=== PATIENT | female | born 1945 | race Caucasian/White ===

== ENCOUNTER 2024-03-17 18:58 | Observation (INO) ==
--- NOTE | 2024-03-17 19:22 | Emergency Department Note ---
Impression & Plan Acute respiratory distress, WILKINS (dyspnea on exertion), Acute bronchospasm, Tachycardia, COPD (chronic obstructive pulmonary disease), Acute hyponatremia ED Provider Note NAME: RENATA FREEMAN AGE: 78 SEX: F : 1945 ARRIVES VIA: Ambulance INFORMANT: Patient, EMS ED PROVIDER(S): Jon Cohen DO CHIEF COMPLAINT: Shortness of breath HPI: The patient is a 78-year-old female who presented to the emergency department for shortness of breath. The patient has been noticing symptoms over the course of the last 3 weeks which became much worse over the last 48 hours. The patient called 911 and arrived via ambulance. She was found to be very short of breath and was treated with 3 DuoNeb treatments prior to arrival as well as IV Solu-Medrol. The patient continues to have significant symptoms. She denies having any hemoptysis but does note a productive cough or a frothy sputum. She states her family member had similar symptoms a few weeks ago but she got better. The patient denies having any leg swelling or leg pain. ROS: See above HPI for pertinent positives & negatives. A total of 10 systems reviewed and were otherwise negative. PAST MEDICAL HISTORY: See Below PAST SURGICAL HISTORY: See Below FAMILY HISTORY: See Below SOCIAL HISTORY: See Below HOME MEDICATIONS: See Below ALLERGIES: See Below VITALS: See Below PHYSICAL EXAMINATION: GENERAL: The patient is awake and alert. The patient is very anxious appearing. EYES: The conjunctivae are clear. The pupils are round and reactive. EARS, NOSE, MOUTH AND THROAT: The nose is without any evidence of any deformity. NECK: The neck is nontender and supple. RESPIRATORY: Diminished breath sounds are noted throughout. There was diminished wheezes noted in the upper lung cruz. There is significant tachypnea and conversational dyspnea. CARDIOVASCULAR: Regular rate and rhythm noted there no murmurs rubs or gallops normal S1 normal S2. GASTROINTESTINAL: The abdomen is soft. Abdomen is nontender. MUSCULOSKELETAL/EXTREMITIES: There is no evidence of gross deformity full range of motion is noted in the hips and shoulders. SKIN: There is no obvious evidence of any rash. There are no petechiae, pallor or cyanosis noted. NEUROLOGIC: Patient is awake alert and oriented x3 MEDICAL DECISION MAKING: The patient is a 78-year-old female who presented to the emergency department by ambulance for an evaluation of shortness of breath. The patient already received 3 DuoNeb treatments as well as IV steroids prior to arrival. The patient was tachycardic and having episodes of what appeared to be atrial fibrillation on the cardiac exercise physiologist. I did observe the patient for a period of time until her heart rate improved. She was treated with another DuoNeb because of ongoing bronchospasm as well as IV Cardizem. The patient was treated with IV antibiotics as well. I discussed the patient's laboratory and radiographic studies with her. Given her findings I did discuss her condition with the on- call [facility]. They have agreed to evaluate the patient in the emergency department for further management and disposition. Triage Nursing notes reviewed. Prior medical records reviewed Vital Signs: reviewed and remarkable for tachycardia and tachypnea. Differential diagnosis: Reactive airway disease, pneumonia, pneumothorax, COPD, CHF, infections, cardiac ischemia, pulmonary embolism, musculoskeletal, gastrointestinal, as well as other pathologies. ER treatment provided: See below Diagnostics interpreted by me: ECG: EKG was obtained in the emergency department. My interpretation is sinus rhythm at 80 bpm. There were frequent PACs noted. There is no acute ST segment abnormalities noted. No previous tracing was available. Cardiac Monitoring: An order was placed for continuous cardiac monitoring. The monitor shows a rate of 105 bpm with sinus tachycardia. Laboratory studies: As stated above and show below. Imaging studies: See below. Radiographic imaging was reviewed by myself Consultation(s): I discussed this case with Dr. Alvarado who is on-call for the [facility] group. ED COURSE: Procedures: none Critical Care: I have personally spent greater than 45 minutes of critical care time in the direct management of this patient. This includes bedside care, interpretation of diagnostic studies, and testing, discussion with consultants, patient, and family members, and other required patient management activities. This 45 minutes is in excess of all separately billable procedures. Past Med/Surg History Problem List (Updated 03/18/24 @ 01:34 by Jon Cohen DO) Acute hyponatremia (Acute) Tachycardia (Acute) Acute bronchospasm (Acute) WILKINS (dyspnea on exertion) (Acute) Acute respiratory distress (Acute) Eczematoid otitis externa of both ears COPD (chronic obstructive pulmonary disease) (Chronic) GERD (gastroesophageal reflux disease) (Chronic) Hypertension (Chronic) Hypothyroidism (Chronic) Medical History Thyroid cancer Surgical History Hx of thyroidectomy History of cholecystectomy Hx of tonsillectomy Family History Brother Diabetes Sister Anxiety Mother Asthma Denies family history of Ovarian cancer Prostate cancer Heart disease Breast cancer Colorectal cancer Social History Smoking Status: Former smoker Age Started Using Tobacco: 18; packs per day: 0.5; Second Hand Exposure: No; Do You Dip or Chew Tobacco: No; Hx Alcohol Use: Yes Alcohol type: wine Hx Substance Use: No Preferred Language: French marital status: / Current Living Situation: Alone current occupational status: retired Feels Safe at Home: Yes Dental Care, Regularly: Yes Physical Activity Frequency: 5-6 Times per Week Allergies Allergies Allergy/AdvReac Type Severity Reaction Status Date / Time No Known Allergies Allergy Verified 03/17/24 22:17 Home Meds Home Medications Medication Instructions Recorded Confirmed hydrochlorothiazide 25 mg tablet 25 mg PO DAILY 10/19/19 03/17/24 levothyroxine 175 mcg tablet 175 mcg PO DAILY 10/19/19 03/17/24 melatonin 10 mg capsule 10 mg PO 10/19/19 03/17/24 metoprolol succinate 50 mg capsule 50 mg PO DAILY 10/19/19 03/17/24 sprinkle, ext. release 24 hr esomeprazole magnesium 20 mg 20 mg PO DAILY 01/05/24 03/17/24 capsule,delayed release (Nexium) fluticasone fur. 100 mcg-umeclid 1 inh inhalation DAILY 01/05/24 03/17/24 62.5 mcg-vilant 25 mcg inhalat.powder (Trelegy Ellipta) ibuprofen 200 mg capsule 400 mg PO AMHS 01/05/24 03/17/24 albuterol sulfate 90 mcg/actuation 2 puff inhalation DIRECTED PRN 03/17/24 03/17/24 aerosol inhaler Shortness Of Breath Or Wheezing alendronate 70 mg tablet 70 mg PO .QWEEK 03/17/24 03/17/24 diphenhydramine HCl 25 mg capsule 25 mg PO HS 03/17/24 03/17/24 (Benadryl) fluticasone propionate 50 1 spray intranasal QPM 03/17/24 03/17/24 mcg/actuation nasal spray,suspension Results & Data (ED) Vital Signs Vital Signs - 24 hr 03/17/24 19:02 03/17/24 19:22 03/17/24 19:52 Temperature 37.4 C Temperature Source Oral Pulse Rate 88 102 H 130 H Pulse Rate from SpO2 Sensor 99 H 78 Pulse Rhythm Regular Pulse Strength Normal Respiratory Rate 28 H 34 H 30 H Respiratory Effort / Characteristics Non-Labored Respiratory Depth Normal Respiratory Pattern Regular Blood Pressure 229/136 H 104/80 179/150 H Blood Pressure Mean 167 88 159 Blood Pressure Position Sitting Pulse Oximetry 93 94 90 Oxygen Delivery Method Room Air Room Air Room Air Oxygen Flow Rate Sepsis Recent Fever Within 48 Hours No Sepsis New/Unexplained Change in Mental Status N/A Sepsis Action Taken by Nursing No Action Required 03/17/24 19:58 03/17/24 20:16 03/17/24 20:29 Temperature Temperature Source Pulse Rate 124 H 117 H Pulse Rate from SpO2 Sensor 121 H Pulse Rhythm Pulse Strength Respiratory Rate 22 Respiratory Effort / Characteristics Spontaneous Respiratory Depth Normal Respiratory Pattern Regular Blood Pressure 133/79 Blood Pressure Mean 97 Blood Pressure Position Pulse Oximetry 93 Oxygen Delivery Method Room Air Room Air Oxygen Flow Rate Sepsis Recent Fever Within 48 Hours Sepsis New/Unexplained Change in Mental Status Sepsis Action Taken by Nursing 03/17/24 20:30 03/17/24 20:45 03/17/24 20:46 Temperature Temperature Source Pulse Rate 131 H 121 H 119 H Pulse Rate from SpO2 Sensor 114 H 136 H Pulse Rhythm Pulse Strength Respiratory Rate 28 H 20 Respiratory Effort / Characteristics Respiratory Depth Respiratory Pattern Blood Pressure 123/88 139/90 Blood Pressure Mean 99 106 Blood Pressure Position Pulse Oximetry 90 92 Oxygen Delivery Method Room Air Room Air Oxygen Flow Rate Sepsis Recent Fever Within 48 Hours Sepsis New/Unexplained Change in Mental Status Sepsis Action Taken by Nursing 03/17/24 21:00 03/17/24 21:16 03/17/24 21:30 Temperature Temperature Source Pulse Rate 133 H 127 H Pulse Rate from SpO2 Sensor 119 H 111 H 91 H Pulse Rhythm Pulse Strength Respiratory Rate 20 26 H 24 Respiratory Effort / Characteristics Respiratory Depth Respiratory Pattern Blood Pressure 154/92 H 120/86 129/85 Blood Pressure Mean 112 97 99 Blood Pressure Position Pulse Oximetry 91 91 92 Oxygen Delivery Method Room Air Room Air Room Air Oxygen Flow Rate Sepsis Recent Fever Within 48 Hours Sepsis New/Unexplained Change in Mental Status Sepsis Action Taken by Nursing 03/17/24 22:00 03/17/24 22:38 Temperature Temperature Source Pulse Rate 105 H Pulse Rate from SpO2 Sensor 100 H Pulse Rhythm Pulse Strength Respiratory Rate 34 H Respiratory Effort / Characteristics Respiratory Depth Respiratory Pattern Blood Pressure 139/100 Blood Pressure Mean 113 Blood Pressure Position Pulse Oximetry 92 Oxygen Delivery Method Room Air Room Air Oxygen Flow Rate 0 Sepsis Recent Fever Within 48 Hours Sepsis New/Unexplained Change in Mental Status Sepsis Action Taken by [facility] Medications Current Medication List: was personally reviewed by me Laboratory Data Attestation: I reviewed the patient's lab results. 03/17/24 19:28 03/18/24 00:22 Lab Results 03/17/24 03/17/24 03/17/24 Range/Units 19:28 19:53 20:40 WBC 13.46 H (4.8-10.8) K/ul RBC 4.51 (4.20-5.40) M/uL Hgb 14.2 (12.0-16.0) g/dl Hct 41.2 (37.0-47.0) % MCV 91.4 (80.0-100.0) fL MCH 31.5 (25.0-34.0) pg MCHC 34.5 (32.0-36.0) g/dL RDW Std Deviation 44.3 (36.4-46.3) fL RDW Coeff of Yuli 13.2 (11.5-14.5) % Plt Count 339 (130-400) K/uL MPV 9.7 (9.4-12.4) fL Immature Gran % (Auto) 0.9 % Neut % (Auto) 84.9 % Lymph % (Auto) 7.6 % [place] % (Auto) 5.4 % Eos % (Auto) 0.9 % Baso % (Auto) 0.3 % Neut # (Auto) 11.43 H (1.40-6.50) K/uL Lymph # (Auto) 1.02 L (1.20-3.40) K/uL [place] # (Auto) 0.73 H (0.11-0.59) K/uL Eos # (Auto) 0.12 (0.00-0.50) K/uL Baso # (Auto) 0.04 (0.00-0.20) K/uL Immature Gran # (Auto) 0.12 (0.01-0.20) K/uL PT 10.6 (9.0-12.0) Seconds INR 1.0 (0.9-1.1) APTT 27 (21-31) Seconds PTT Ratio 1.0 VBG pH 7.42 H (7.36-7.41) VBG pCO2 52 H (38-50) mmHg VBG pO2 27 mmHg VBG HCO3 34 mmol/L VBG O2 Saturation < 60.0 % VBG Base Excess 7.6 mEq/L Sodium 129 L (136-145) mmol/L Potassium 3.9 (3.5-5.1) mmol/L Chloride 89 L (98-107) mmol/L Carbon Dioxide 30 (21-32) mmol/L Anion Gap 10 (3-11) BUN 16 (6-23) mg/dl Creatinine 0.77 (0.6-1.2) mg/dl Est Cr Clr Drug Dosing 59.5 ml/min Est GFR ( Amer) 86.3 ml/min Est GFR (Non-Af Amer) 74.5 ml/min BUN/Creatinine Ratio 20.8 H (10-20) Glucose 126 H (70-99(Fasting)) mg/dl Osmolality 267 L (280-300) mOsm/kg Lactate 2.5 H* (0.4-2.0) mmol/L Calcium 8.5 L (8.6-10.3) mg/dl Magnesium 1.5 L (1.7-2.4) mg/dl Total Bilirubin 0.7 (0.2-1.0) mg/dl Direct Bilirubin 0.1 (0-0.2) mg/dl AST 14 (13-39) U/L ALT 14 (7-52) U/L Alkaline Phosphatase 73 (34-104) U/L Troponin I High Sens 7.2 (0-14) pg/ml B-Natriuretic Peptide 133 H (0-100) pg/ml Total Protein 7.1 (6.0-8.3) gm/dl Albumin 4.2 (3.4-5.0) gm/dl Procalcitonin < 0.02 (0-0.5) ng/ml TSH 0.027 L (0.300-4.500) uIu/ml Free T4 1.84 H (0.61-1.60) ng/dl Urine Color Yellow Urine Appearance Clear (Clear) Urine pH 6.5 (4.5-7.5) Ur Specific Commerce 1.009 (1.000-1.030) Urine Protein Negative (Negative) Urine Glucose (UA) Negative (Negative) Urine Ketones Negative (Negative) Urine Blood 1+ H (Negative) Urine Nitrite Negative (Negative) Urine Bilirubin Negative (Negative) Urine Urobilinogen Negative (Negative) Ur Leukocyte Esterase Trace H (Negative) Urine WBC (Auto) 0-5 (0-5) /hpf Urine RBC (Auto) 6-10 H (0-2) /hpf U Hyaline Cast (Auto) 0-2 (0-2) /lpf U Epithel Cells (Auto) 0-2 (0-2) /hpf Urine Bacteria (Auto) None Seen (None Seen) Adenovirus (PCR) Not Detected (NotDetected) B. pertussis DNA (PCR) Not Detected (NotDetected) B.parapertussis DNA PCR Not Detected (NotDetected) C. pneumoniae DNA (PCR) Not Detected (NotDetected) Coronavirus OC43 (PCR) Not Detected (NotDetected) Coronavirus HKU1 (PCR) Not Detected (NotDetected) Coronavirus 229E (PCR) Not Detected (NotDetected) SARS-CoV-2 (PCR) Not Detected (NotDetected) Coronavirus NL63 (PCR) Not Detected (NotDetected) Human Metapneumovir PCR Not Detected (NotDetected) Influenza Type A (PCR) Not Detected (NotDetected) Influenza Type B (PCR) Not Detected (NotDetected) M. pneumoniae (PCR) Not Detected (NotDetected) Parainfluenza 1 (PCR) Not Detected (NotDetected) Parainfluenza 2 (PCR) Not Detected (NotDetected) Parainfluenza 3 (PCR) Not Detected (NotDetected) Parainfluenza 4 (PCR) Not Detected (NotDetected) RSV (PCR) Not Detected (NotDetected) Entero/Rhino (PCR) DETECTED A (NotDetected) 03/17/24 Range/Units 21:44 WBC (4.8-10.8) K/ul RBC (4.20-5.40) M/uL Hgb (12.0-16.0) g/dl Hct (37.0-47.0) % MCV (80.0-100.0) fL MCH (25.0-34.0) pg MCHC (32.0-36.0) g/dL RDW Std Deviation (36.4-46.3) fL RDW Coeff of Yuli (11.5-14.5) % Plt Count (130-400) K/uL MPV (9.4-12.4) fL Immature Gran % (Auto) % Neut % (Auto) % Lymph % (Auto) % [place] % (Auto) % Eos % (Auto) % Baso % (Auto) % Neut # (Auto) (1.40-6.50) K/uL Lymph # (Auto) (1.20-3.40) K/uL [place] # (Auto) (0.11-0.59) K/uL Eos # (Auto) (0.00-0.50) K/uL Baso # (Auto) (0.00-0.20) K/uL Immature Gran # (Auto) (0.01-0.20) K/uL PT (9.0-12.0) Seconds INR (0.9-1.1) APTT (21-31) Seconds PTT Ratio VBG pH (7.36-7.41) VBG pCO2 (38-50) mmHg VBG pO2 mmHg VBG HCO3 mmol/L VBG O2 Saturation % VBG Base Excess mEq/L Sodium (136-145) mmol/L Potassium (3.5-5.1) mmol/L Chloride (98-107) mmol/L Carbon Dioxide (21-32) mmol/L Anion Gap (3-11) BUN (6-23) mg/dl Creatinine (0.6-1.2) mg/dl Est Cr Clr Drug Dosing ml/min Est GFR ( Amer) ml/min Est GFR (Non-Af Amer) ml/min BUN/Creatinine Ratio (10-20) Glucose (70-99(Fasting)) mg/dl Osmolality (280-300) mOsm/kg Lactate 3.9 H* (0.4-2.0) mmol/L Calcium (8.6-10.3) mg/dl Magnesium (1.7-2.4) mg/dl Total Bilirubin (0.2-1.0) mg/dl Direct Bilirubin (0-0.2) mg/dl AST (13-39) U/L ALT (7-52) U/L Alkaline Phosphatase (34-104) U/L Troponin I High Sens (0-14) pg/ml B-Natriuretic Peptide (0-100) pg/ml Total Protein (6.0-8.3) gm/dl Albumin (3.4-5.0) gm/dl Procalcitonin (0-0.5) ng/ml TSH (0.300-4.500) uIu/ml Free T4 (0.61-1.60) ng/dl Urine Color Urine Appearance (Clear) Urine pH (4.5-7.5) Ur Specific Commerce (1.000-1.030) Urine Protein (Negative) Urine Glucose (UA) (Negative) Urine Ketones (Negative) Urine Blood (Negative) Urine Nitrite (Negative) Urine Bilirubin (Negative) Urine Urobilinogen (Negative) Ur Leukocyte Esterase (Negative) Urine WBC (Auto) (0-5) /hpf Urine RBC (Auto) (0-2) /hpf U Hyaline Cast (Auto) (0-2) /lpf U Epithel Cells (Auto) (0-2) /hpf Urine Bacteria (Auto) (None Seen) Adenovirus (PCR) (NotDetected) B. pertussis DNA (PCR) (NotDetected) B.parapertussis DNA PCR (NotDetected) C. pneumoniae DNA (PCR) (NotDetected) Coronavirus OC43 (PCR) (NotDetected) Coronavirus HKU1 (PCR) (NotDetected) Coronavirus 229E (PCR) (NotDetected) SARS-CoV-2 (PCR) (NotDetected) Coronavirus NL63 (PCR) (NotDetected) Human Metapneumovir PCR (NotDetected) Influenza Type A (PCR) (NotDetected) Influenza Type B (PCR) (NotDetected) M. pneumoniae (PCR) (NotDetected) Parainfluenza 1 (PCR) (NotDetected) Parainfluenza 2 (PCR) (NotDetected) Parainfluenza 3 (PCR) (NotDetected) Parainfluenza 4 (PCR) (NotDetected) RSV (PCR) (NotDetected) Entero/Rhino (PCR) (NotDetected) Administered Medications Heparin Sodium/Dextrose (Heparin Sodium/Dextrose) 25,000 units in 500 mls @ 22 mls/hr IV .[id number] FILIPE; Protocol Stop: 04/16/24 23:29 Last Admin: 03/18/24 00:33 Dose: 1,100 units/hr, 22 mls/hr Documented By: Co-signed By: YENNI Lactated Ringer's (Lr) 1,000 mls @ 75 mls/hr IV .[id number] ONE Stop: 03/18/24 12:27 Last Admin: 03/18/24 01:21 Dose: 75 mls/hr Documented By: ASM Discontinued Medications Albuterol (Albut/Ipratrop 3mg/0.5mg Neb 3 Ml Vial) 3 ml NEB NOW STA; Protocol Stop: 03/17/24 21:22 Last Admin: 03/17/24 21:37 Dose: 3 ml Documented By: [facility] Diltiazem HCl (Diltiazem Hcl 5 Mg/Ml 5 Ml Vial) 10 mg IV NOW STA Stop: 03/17/24 21:23 Last Admin: 03/17/24 21:29 Dose: 10 mg Documented By: [facility] Co-signed By: JESSA Magnesium Sulfate/Dextrose (Magnesium Sulfate / D5w) 1 gm in 100 mls @ 200 mls/hr IV Q30M FILIPE Stop: 03/17/24 21:47 Last Infusion: 03/17/24 22:35 Dose: Infused Documented By: [facility] Admin: 03/17/24 21:42 Dose: 200 mls/hr Documented By: [facility] Infusion: 03/17/24 21:38 Dose: Infused Documented By: [facility] Admin: 03/17/24 21:08 Dose: 200 mls/hr Documented By: [facility] Ceftriaxone Sodium (Rocephin) 2,000 mg in 50 mls @ 100 mls/hr IV NOW STA Stop: 03/17/24 21:50 Last Infusion: 03/17/24 22:29 Dose: Infused Documented By: [facility] Admin: 03/17/24 21:41 Dose: 100 mls/hr Documented By: [facility] Sodium Chloride (Nss) 1,000 mls @ 999 mls/hr IV .[id number] ONE Stop: 03/17/24 23:01 Last Infusion: 03/17/24 23:30 Dose: Infused Documented By: Admin: 03/17/24 22:29 Dose: 999 mls/hr Documented By: [facility] Doxycycline Hyclate 100 mg/ (Dextrose) 100 mls @ 50 mls/hr IV NOW STA Stop: 03/18/24 00:00 Last Infusion: 03/18/24 00:30 Dose: Infused Documented By: Admin: 03/17/24 22:25 Dose: 50 mls/hr Documented By: [facility] Ioversol (Optiray 320 100ml) 88 ml IV ONCE ONE Stop: 03/17/24 23:48 Last Admin: 03/17/24 23:47 Dose: 88 ml Documented By: [facility] Metoprolol Succinate (Metoprolol Succ 50mg Ext Rel Tab) 50 mg PO NOW STA Stop: 03/17/24 23:03 Last Admin: 03/17/24 23:26 Dose: 50 mg Documented By: Potassium Chloride (Potassium Chloride Pwd 20 Meq Pack) 20 meq PO NOW STA Stop: 03/17/24 22:02 Last Admin: 03/17/24 22:23 Dose: 20 meq Documented By: [facility] Imaging Data Attestation: I personally reviewed and interpreted this imaging study as follows: My Impression: 1 view chest x-ray was obtained in the emergency department. My interpretation is no free air or definite infiltrate, final report below. Radiologist's Impression: Chest CT 03/17/24 23:01 Exam(s): CT CHEST With Contrast IV Amt: 88 cc's optiray 320 EXAM: CT Chest With Intravenous Contrast CLINICAL HISTORY: Reason for exam: recurrent cough. TECHNIQUE: Axial computed tomography images of the chest with intravenous contrast. CTDI is 13.44 mGy and DLP is 454.18 mGy-cm. Automated exposure control was utilized for the study. A dose lowering technique was utilized adhering to the principles of ALARA. CONTRAST: Patient received 88 cc's optiray 320 of IV contrast COMPARISON: No relevant prior studies available. FINDINGS: Lungs: Centrilobular emphysema. No consolidation or mass. Pleural space: Unremarkable. No pleural effusion or pneumothorax. Heart: Coronary artery atherosclerosis. No cardiomegaly or pericardial effusion. Bones/joints: Unremarkable. No acute fracture. No dislocation. Soft tissues: Unremarkable. Vasculature: Thoracic aortic atherosclerosis without aneurysm or dissection. Normal caliber main pulmonary artery. Lymph nodes: Unremarkable. No adenopathy. Kidneys and ureters: Partially imaged simple left kidney cyst measuring 3 cm; no further follow-up required. IMPRESSION: 1. No acute findings. 2. Emphysematous changes noted. Pulmonary emphysema is an independent risk factor for lung cancer. Recommend patient be evaluated for low-dose cancer screening protocol. Electronically signed by: Miguelangel Vu M.D. 03/18/24 01:24 AM Discharge Plan Visit Data Chief Complaint: Shortness of Breath/Dyspnea ED Provider: Jon Cohen Discharge Problem: Acute respiratory distress, WILKINS (dyspnea on exertion), Acute bronchospasm, Tachycardia, COPD (chronic obstructive pulmonary disease), Acute hyponatremia Patient Disposition: Admitted As Inpatient Discharge Instructions Interventions: ED Discharge Assessment Last Done: 03/18/24 00:43 Discharge Problem: COPD (chronic obstructive pulmonary disease) Qualifiers: COPD type: unspecified COPD Qualified Code(s): J44.9 - Chronic obstructive pulmonary disease, unspecified
[2024-03-17 19:46] LABS: Base Excess VBG 7.6 mEq/L; HCO3 VBG 34 mmol/L; Oxygen Saturation VBG < 60.0 %; PCO2 VBG 52 mmHg (38-50); PO2 VBG 27 mmHg; pH VBG 7.42 (7.36-7.41)
[2024-03-17 20:16] LABS: Albumin Level 4.2 gm/dl (3.4-5.0); BUN Creatinine Ratio 20.8 (10-20); Bilirubin Direct 0.1 mg/dl (0-0.2); Bilirubin,Total 0.7 mg/dl (0.2-1.0); Calcium 8.5 mg/dl (8.6-10.3); Creatinine Clr Calc Pharmacy 59.5 ml/min; Est GFR (African American) 86.3 ml/min; Est GFR (Non-African American) 74.5 ml/min; Magnesium 1.5 mg/dl (1.7-2.4); Potassium 3.9 mmol/L (3.5-5.1); Total Protein 7.1 gm/dl (6.0-8.3)
[2024-03-17 20:20] LABS: Appearance Urine Clear (Clear); Bacteria Urine Automated None Seen (None Seen); Bilirubin Urine Negative (Negative); Blood Urine 1+ (Negative); Cast Urine Automated 0-2 /lpf (0-2); Color Urine Yellow; Epithelial Cell Urine Auto 0-2 /hpf (0-2); Glucose Urine UA Negative (Negative); Ketones Urine Negative (Negative); Leukocyte Esterase Urine Trace (Negative); Nitrite Urine Negative (Negative); Protein Urine Negative (Negative); Specific Gravity Urine 1.009 (1.000-1.030); Urobilinogen Urine Negative (Negative); WBC Urine Automated 0-5 /hpf (0-5); pH Urine 6.5 (4.5-7.5)
[2024-03-17 20:22] LABS: Troponin I High Sensitivity 7.2 pg/ml (0-14)
[2024-03-17 20:31] LABS: Partial Thromboplastin Time 27 Seconds (21-31); Prothrombin Time 10.6 Seconds (9.0-12.0)
[2024-03-17 20:50] LABS: Basophils # (auto) 0.04 K/uL (0.00-0.20); Basophils % (auto) 0.3 %; Eosinophils # (auto) 0.12 K/uL (0.00-0.50); Eosinophils % (auto) 0.9 %; Hematocrit (blood only) 41.2 % (37.0-47.0); Hemoglobin 14.2 g/dl (12.0-16.0); Immature Granulocytes # (auto) 0.12 K/uL (0.01-0.20); Immature Granulocytes % (auto) 0.9 %; Lymphocytes # (auto) 1.02 K/uL (1.20-3.40); Lymphocytes % (auto) 7.6 %; Mean Corpuscular Hemoglobin 31.5 pg (25.0-34.0); Mean Corpuscular Hgb Conc 34.5 g/dL (32.0-36.0); Mean Corpuscular Volume 91.4 fL (80.0-100.0); Mean Platelet Volume 9.7 fL (9.4-12.4); Monocytes # (auto) 0.73 K/uL (0.11-0.59); Monocytes % (auto) 5.4 %; Neutrophils # (auto) 11.43 K/uL (1.40-6.50); Neutrophils % (auto) 84.9 %; Platelet Count 339 K/uL (130-400); RDW Coefficient of Variation 13.2 % (11.5-14.5); RDW Standard Deviation 44.3 fL (36.4-46.3); Red Blood Count 4.51 M/uL (4.20-5.40); White Blood Count 13.46 K/ul (4.8-10.8)
[2024-03-17] MEDS: MAGNESIUM SULFATE / D5W 1 GM/100 ML BAG IV SCH (21:08)
[2024-03-17] MEDS: dilTIAZem HCl 5 MG/ML 5 ML VIAL IV STA (21:29)
[2024-03-17] MEDS: ALBUT/IPRATROP 3MG/0.5MG NEB 3 ML VIAL NEB STA (21:37)
[2024-03-17] MEDS: cefTRIAXone SODIUM 2,000 MG/50 ML BAG IV STA (21:41)
[2024-03-17 21:53] LABS: Adenovirus PCR Not Detected (NotDetected); Bordetella parapertussis PCR Not Detected (NotDetected); Bordetella pertussis PCR Not Detected (NotDetected); Chlamydia pneumoniae PCR Not Detected (NotDetected); Coronavirus 229E PCR Not Detected (NotDetected); Coronavirus CoV-2 (COVID19)PCR Not Detected (NotDetected); Coronavirus HKU1 PCR Not Detected (NotDetected); Coronavirus NL63 PCR Not Detected (NotDetected); Coronavirus OC43PCR Not Detected (NotDetected); Human Metapneumovirus PCR Not Detected (NotDetected); Influenza A PCR Not Detected (NotDetected); Influenza B PCR Not Detected (NotDetected); Mycoplasma pneumoniae PCR Not Detected (NotDetected); Parainfluenza Virus 1 PCR Not Detected (NotDetected); Parainfluenza Virus 2 PCR Not Detected (NotDetected); Parainfluenza Virus 3 PCR Not Detected (NotDetected); Parainfluenza Virus 4 PCR Not Detected (NotDetected); Respiratory Syncytial VirusPCR Not Detected (NotDetected); Rhinovirus/Enterovirus PCR DETECTED (NotDetected)
[2024-03-17] MEDS: POTASSIUM CHLORIDE PWD 20 MEQ PACK PO STA (22:23)
[2024-03-17] MEDS: DOXYCYCLINE HYCLATE 100 MG in DEXTROSE 5% MINI-B 100 ML IV STA (22:25)
[2024-03-17] MEDS: SODIUM CHLORIDE 0.9% 1,000 ML IV ONE (22:29)
--- NOTE | 2024-03-17 23:03 | History & Physical Report ---
Date of Service March 17, 2024 Assessment & Plan (1) Atrial fibrillation with rapid ventricular response: Plan: New onset atrial fibrillation/flutter Multifactorial: Uncontrolled hypertension secondary to recent steroid course for COPD exacerbation, hold NSAIDs contributory Abnormal TFTs, history of thyroid cancer on levothyroxine Rx for postsurgical hypothyroidism Persistent COPD exacerbation secondary to entero/rhinovirus infection Viral sepsis secondary to above hyperlipidemia, on statin Rx chronic hyponatremia GERD, stable on PPI Steroid-induced hyperglycemia rule out DM past tobacco abuse PCU Titrate home beta-oscar IV heparin for thromboembolic prophylaxis Patient counseled regarding adverse effects of systemic NSAIDs on blood pressure. TTE, Cardiology consult Re: New onset A-fib Decrease home levothyroxine dose from current 175 mcg to 150 mcg daily, recheck TFTs outpatient next month Nebs RTC, prednisone course for persistent COPD exacerbation Supportive management for viral illness No indication for antibiotics for now. Hyponatremia workup, hold home HCTZ on discharge Check hemoglobin A1c DVT prophylaxis. IV heparin Full code Text document was generated using [employer] voice recognition software. It may contain grammatical or spelling errors. Kindly contact undersigned for clarification of any documentation item in question. History of Present Illness Chief Complaint: Shortness of breath, high blood pressure Primary Care Provider: Santosh Beverly MD History obtained from patient and records. Medical history significant for COPD, hypertension, hyperlipidemia, thyroid cancer status post surgery, postsurgical hypothyroidism, chronic hyponatremia, GERD, gout, past tobacco abuse. 3 weeks ago, patient noted junky cough symptoms with shortness of breath. No chest pain. Sick contacts at home. Denies aspiration. Initial improvement after outpatient doxycycline and prednisone course prescribed by PCP. Cough symptoms productive of clear sputum noted the last 2 days. Worsening shortness of breath. Blood pressure noted to be high at home. No headache symptoms. No fluid retention. Patient compliant with home BP medications. EMS called to patient's home. Patient noted to be in rapid A-fib. No previous episodes of atrial fibrillation or atrial flutter as per patient. Intermittent atrial fib/flutter noted at the ER. Hiatus heart rate 130s. IV Cardizem administered at the ER. Ceftriaxone, doxycycline, and neb treatment administered at the ER. 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 release 24 hr esomeprazole magnesium 20 mg 20 mg PO DAILY 01/05/24 03/17/24 History capsule,delayed release (Nexium) fluticasone fur. 100 mcg-umeclid 1 inh inhalation DAILY 01/05/24 03/17/24 History 62.5 mcg-vilant 25 mcg inhalat.powder (Trelegy Ellipta) ibuprofen 200 mg capsule 400 mg PO AMHS 01/05/24 03/17/24 History albuterol sulfate 90 mcg/actuation 2 puff inhalation DIRECTED PRN 03/17/24 03/17/24 History aerosol inhaler Shortness Of Breath Or Wheezing alendronate 70 mg tablet 70 mg PO .QWEEK 03/17/24 03/17/24 History diphenhydramine HCl 25 mg capsule 25 mg PO HS 03/17/24 03/17/24 History (Benadryl) fluticasone propionate 50 1 spray intranasal QPM 03/17/24 03/17/24 History mcg/actuation nasal spray,suspension Past Med/Surg History Problem List (Updated 03/18/24 @ 05:05 by Miguel Evans MD) Atrial fibrillation with rapid ventricular response Acute hyponatremia (Acute) Tachycardia (Acute) Acute bronchospasm (Acute) WILKINS (dyspnea on exertion) (Acute) Acute respiratory distress (Acute) Eczematoid otitis externa of both ears COPD (chronic obstructive pulmonary disease) (Chronic) GERD (gastroesophageal reflux disease) (Chronic) Hypertension (Chronic) Hypothyroidism (Chronic) Medical History Thyroid cancer Surgical History Hx of thyroidectomy History of cholecystectomy Hx of tonsillectomy Family History Brother Diabetes Sister Anxiety Mother Asthma Denies family history of Ovarian cancer Prostate cancer Heart disease Breast cancer Colorectal cancer Social History Smoking Status: Never smoker Tobacco Type: Cigarettes Age Started Using Tobacco: 18; packs per day: 0.5; Cigarettes Per Day: 10; Second Hand Exposure: No; Do You Dip or Chew Tobacco: No; Hx Alcohol Use: No Hx Substance Use: No Preferred Language: Panamanian Communication Ability: Effective Deputy Commonwealth'S Attorney Required: No Beliefs That Will Affect Care: None marital status: / Current Living Situation: Alone current occupational status: retired Other Information That Helps Us Care for You: No Feels Safe at Home: Yes Safety Concerns: Feels Safe At This Time Dental Care, Regularly: Yes Physical Activity Frequency: 5-6 Times per Week Assistive Devices: None Review of Systems Review of Systems: As per HPI, all other systems reviewed and negative Physical Exam Physical Exam: GENERAL: Comfortable, pleasant, minimal respiratory distress SKIN: Normal color, warm HEENT: [place] palpebral conjunctivae, no ptosis, dry buccal mucosa NECK : Supple, no tenderness CHEST : Decreased breath sounds, occasional expiratory wheezes, no tenderness HEART : Tachycardic, no obvious murmurs ABDOMEN: Some distention, nontender EXTREMITIES : No LE swelling/tenderness, no other conspicuous deformities noted NEUROLOGIC : Coherent, no facial asymmetry, no other gross focality Results & Data Results & Data Vital Signs (Past 12 Hours) Vital Signs Temp Pulse Resp BP Pulse Ox O2 Del Method O2 Flow Rate 03/17/24 22:38 Room Air 0 03/17/24 22:00 105 H 34 H 139/100 92 Room Air 03/17/24 21:30 127 H 24 129/85 92 Room Air 03/17/24 21:16 133 H 26 H 120/86 91 Room Air 03/17/24 21:00 20 154/92 H 91 Room Air 03/17/24 20:46 119 H 20 139/90 92 Room Air 03/17/24 20:45 121 H 03/17/24 20:30 131 H 28 H 123/88 90 Room Air 03/17/24 20:29 117 H 03/17/24 20:16 124 H 22 133/79 93 Room Air 03/17/24 19:58 Room Air 03/17/24 19:52 130 H 30 H 179/150 H 90 Room Air 03/17/24 19:22 102 H 34 H 104/80 94 Room Air 03/17/24 19:02 37.4 C 88 28 H 229/136 H 93 Room Air Laboratory Results Laboratory Results WBC 13.46 K/ul (4.8-10.8) H 03/17/24 19:28 RBC 4.51 M/uL (4.20-5.40) 03/17/24 19:28 Hgb 14.2 g/dl (12.0-16.0) 03/17/24 19: Hct 41.2 % (37.0-47.0) 03/17/24 19: MCV 91.4 fL (80.0-100.0) 03/17/24 19: MCH 31.5 pg (25.0-34.0) 03/17/24 19: MCHC 34.5 g/dL (32.0-36.0) 03/17/24 19:28 RDW Std Deviation 44.3 fL (36.4-46.3) 03/17/24 19: RDW Coeff of Yuli 13.2 % (11.5-14.5) 03/17/24 19: Plt Count 339 K/uL (130-400) 03/17/24 19: MPV 9.7 fL (9.4-12.4) 03/17/24 19: Immature Gran % (Auto) 0.9 % 03/17/24 19: Neut % (Auto) 84.9 % 03/17/24 19:28 Lymph % (Auto) 7.6 % 03/17/24 19:28 [place] % (Auto) 5.4 % 03/17/24 19: Eos % (Auto) 0.9 % 03/17/24 19: Baso % (Auto) 0.3 % 03/17/24 19: Neut # (Auto) 11.43 K/uL (1.40-6.50) H 03/17/24 19: Lymph # (Auto) 1.02 K/uL (1.20-3.40) L 03/17/24 19:28 [place] # (Auto) 0.73 K/uL (0.11-0.59) H 03/17/24 19: Eos # (Auto) 0.12 K/uL (0.00-0.50) 03/17/24 19: Baso # (Auto) 0.04 K/uL (0.00-0.20) 03/17/24: Immature Gran # (Auto) 0.12 K/uL (0.01-0.20) 03/17/24 19: PT 10.6 Seconds (9.0-12.0) 03/17/24: INR 1.0 (0.9-1.1) 03/17/24: APTT 27 Seconds (21-31) 03/17/24: PTT Ratio 1.0 03/17/24: VBG pH 7.42 (7.36-7.41) H 03/17/24: VBG pCO2 52 mmHg (38-50) H 03/17/24: VBG pO2 27 mmHg 03/17/24 19: VBG HCO3 34 mmol/L 03/17/24 19: VBG O2 Saturation < 60.0 % 03/17/24: VBG Base Excess 7.6 mEq/L 03/17/24: Sodium 129 mmol/L (136-145) L 03/17/24: Potassium 3.9 mmol/L (3.5-5.1) 03/17/24: Chloride 89 mmol/L (98-107) L 03/17/24: Carbon Dioxide 30 mmol/L (21-32) 03/17/24: Anion Gap 10 (3-11) 03/17/24 19: BUN 16 mg/dl (6-23) 03/17/24: Creatinine 0.77 mg/dl (0.6-1.2) 03/17/24: Est Cr Clr Drug Dosing 59.5 ml/min 03/17/24 19: Est GFR ( Amer) 86.3 ml/min 03/17/24: Est GFR (Non-Af Amer) 74.5 ml/min 05/17/24 19:28 BUN/Creatinine Ratio 20.8 (10-20) H 03/17/24 19:28 Glucose 126 mg/dl (70-99(Fasting)) H 03/17/24 19:28 Osmolality 267 mOsm/kg (280-300) L 03/17/24 19:28 Lactate 3.9 mmol/L (0.4-2.0) H* 03/17/24 21:44 Calcium 8.5 mg/dl (8.6-10.3) L 03/17/24 19:28 Magnesium 1.5 mg/dl (1.7-2.4) L 03/17/24 19:28 Total Bilirubin 0.7 mg/dl (0.2-1.0) 03/17/24 19:28 Direct Bilirubin 0.1 mg/dl (0-0.2) 03/17/24 19:28 AST 14 U/L (13-39) 03/17/24 19:28 ALT 14 U/L (7-52) 03/17/24 19:28 Alkaline Phosphatase 73 U/L (34-104) 03/17/24 19:28 Troponin I High Sens 7.2 pg/ml (0-14) 03/17/24 19:28 B-Natriuretic Peptide 133 pg/ml (0-100) H 03/17/24 19:28 Total Protein 7.1 gm/dl (6.0-8.3) 03/17/24 19:28 Albumin 4.2 gm/dl (3.4-5.0) 03/17/24 19:28 Procalcitonin < 0.02 ng/ml (0-0.5) 03/17/24 19:28 Urine Color Yellow 03/17/24 19:53 Urine Appearance Clear (Clear) 03/17/24 19:53 Urine pH 6.5 (4.5-7.5) 03/17/24 19:53 Ur Specific [place] 1.009 (1.000-1.030) 03/17/24 19:53 Urine Protein Negative (Negative) 03/17/24 19:53 Urine Glucose (UA) Negative (Negative) 03/17/24 19:53 Urine Ketones Negative (Negative) 03/17/24 19:53 Urine Blood 1+ (Negative) H 03/17/24 19:53 Urine Nitrite Negative (Negative) 03/17/24 19:53 Urine Bilirubin Negative (Negative) 03/17/24 19:53 Urine Urobilinogen Negative (Negative) 03/17/24 19:53 Ur Leukocyte Esterase Trace (Negative) H 03/17/24 19:53 Urine WBC (Auto) 0-5 /hpf (0-5) 03/17/24 19:53 Urine RBC (Auto) 6-10 /hpf (0-2) H 03/17/24 19:53 U Hyaline Cast (Auto) 0-2 /lpf (0-2) 03/17/24 19:53 U Epithel Cells (Auto) 0-2 /hpf (0-2) 03/17/24 19:53 Urine Bacteria (Auto) None Seen (None Seen) 03/17/24 19:53 Adenovirus (PCR) Not Detected (NotDetected) 03/17/24 20:40 B. pertussis DNA (PCR) Not Detected (NotDetected) 03/17/24 20:40 B.parapertussis DNA PCR Not Detected (NotDetected) 03/17/24 20:40 C. pneumoniae DNA (PCR) Not Detected (NotDetected) 03/17/24 20:40 Coronavirus OC43 (PCR) Not Detected (NotDetected) 03/17/24 20:40 Coronavirus HKU1 (PCR) Not Detected (NotDetected) 03/17/24 20:40 Coronavirus 229E (PCR) Not Detected (NotDetected) 03/17/24 20:40 SARS-CoV-2 (PCR) Not Detected (NotDetected) 03/17/24 20:40 Coronavirus NL63 (PCR) Not Detected (NotDetected) 03/17/24 20:40 Human Metapneumovir PCR Not Detected (NotDetected) 03/17/24 20:40 Influenza Type A (PCR) Not Detected (NotDetected) 03/17/24 20:40 Influenza Type B (PCR) Not Detected (NotDetected) 03/17/24 20:40 M. pneumoniae (PCR) Not Detected (NotDetected) 03/17/24 20:40 Parainfluenza 1 (PCR) Not Detected (NotDetected) 03/17/24 20:40 Parainfluenza 2 (PCR) Not Detected (NotDetected) 03/17/24 20:40 Parainfluenza 3 (PCR) Not Detected (NotDetected) 03/17/24 20:40 Parainfluenza 4 (PCR) Not Detected (NotDetected) 03/17/24 20:40 RSV (PCR) Not Detected (NotDetected) 03/17/24 20:40 Entero/Rhino (PCR) DETECTED (NotDetected) A 03/17/24 20:40 Diagnostic Findings EKG as per my interpretation : Rate 90, NSR, normal axis, septal infarct, T wave abnormalities septal leads
[2024-03-17 23:05] LABS: Thyroid Stimulating Hormone 0.027 uIu/ml (0.300-4.500)
[2024-03-17] MEDS ORDERED: hydrOXYzine HCl 10 MG TAB PO PRN (23:06)
[2024-03-17] MEDS ORDERED: ACETAMINOPHEN 325 MG TAB PO PRN (23:09)
[2024-03-17] MEDS ORDERED: oxyCODONE HCL IR 5 MG TAB (IMMEDIATE RELEASE) PO PRN (23:09)
[2024-03-17] MEDS ORDERED: PROMETHAZINE HCL 6.25 MG in SODIUM CHLORIDE 0.9% 50 ML IV PRN (23:09)
[2024-03-17] MEDS: METOPROLOL SUCC 50MG EXT REL TAB PO STA (23:26)
[2024-03-17] MEDS: OPTIRAY 320 100ml IV ONE (23:47)
[2024-03-18] MEDS: HEPARIN SODIUM/DEXTROSE 25,000 UNITS/500 ML BAG IV SCH (00:33)
[2024-03-18 00:49] LABS: T4 Free Thyroxine 1.84 ng/dl (0.61-1.60)
[2024-03-18] MEDS ORDERED: ACETAMINOPHEN 325 MG TAB PO PRN (01:15)
[2024-03-18] MEDS: LACTATED RINGER'S 1,000 ML IV ONE ×3 (01:21→06:43)
--- NOTE | 2024-03-18 01:25 | CT Scan Report ---
Exam(s): CT CHEST With Contrast IV Amt: 88 cc's optiray 320 EXAM: CT Chest With Intravenous Contrast CLINICAL HISTORY: Reason for exam: recurrent cough. TECHNIQUE: Axial computed tomography images of the chest with intravenous contrast. CTDI is 13.44 mGy and DLP is 454.18 mGy-cm. Automated exposure control was utilized for the study. A dose lowering technique was utilized adhering to the principles of ALARA. CONTRAST: Patient received 88 cc's optiray 320 of IV contrast COMPARISON: No relevant prior studies available. FINDINGS: Lungs: Centrilobular emphysema. No consolidation or mass. Pleural space: Unremarkable. No pleural effusion or pneumothorax. Heart: Coronary artery atherosclerosis. No cardiomegaly or pericardial effusion. Bones/joints: Unremarkable. No acute fracture. No dislocation. Soft tissues: Unremarkable. Vasculature: Thoracic aortic atherosclerosis without aneurysm or dissection. Normal caliber main pulmonary artery. Lymph nodes: Unremarkable. No adenopathy. Kidneys and ureters: Partially imaged simple left kidney cyst measuring 3 cm; no further follow-up required. IMPRESSION: 1. No acute findings. 2. Emphysematous changes noted. Pulmonary emphysema is an independent risk factor for lung cancer. Recommend patient be evaluated for low-dose cancer screening protocol. Electronically signed by: Miguelangel Vu M.D. 03/18/24 01:24 AM
[2024-03-18] MEDS: IPRATROPIUM BROMIDE NEB SOLN 0.02% 0.5MG/2.5ML VIAL INH SCH (01:51)
[2024-03-18] MEDS: LEVALBUTEROL 1.25 MG/3 ML NEB NEB SCH (01:51)
[2024-03-18] MEDS: MELATONIN 3 MG TAB PO STA (01:55)
[2024-03-18] MEDS: Heparin IV Adult Wt-Based Standard *NO* INITIAL Bolus Protocol IV STA (02:56)
[2024-03-18] MEDS ORDERED: DICLOFENAC SOD 1% GEL 100 GM TUBE EXT PRN (05:09)
[2024-03-18] MEDS ORDERED: LEVOTHYROXINE SODIUM 175 MCG TABLET PO SCH (06:30)
[2024-03-18] MEDS: LEVOTHYROXINE SODIUM 150 MCG TABLET PO SCH (06:39)
[2024-03-18 07:23] LABS: Hematocrit (blood only) 38.9 % (37.0-47.0); Hemoglobin 13.6 g/dl (12.0-16.0); Mean Corpuscular Hemoglobin 31.6 pg (25.0-34.0); Mean Corpuscular Volume 90.3 fL (80.0-100.0); Mean Platelet Volume 9.8 fL (9.4-12.4); Platelet Count 337 K/uL (130-400); RDW Coefficient of Variation 13.3 % (11.5-14.5); RDW Standard Deviation 43.9 fL (36.4-46.3); Red Blood Count 4.31 M/uL (4.20-5.40); White Blood Count 12.03 K/ul (4.8-10.8)
[2024-03-18 07:30] LABS: Estimated Average Glucose 134 mg/dl; Hemoglobin A1C 6.3 % (4.5-5.6)
--- NOTE | 2024-03-18 07:35 | XRay Report ---
XR chest 1V portable HISTORY: 78 years-old Female Sepsis acute sepsis COMPARISON: CT chest of same day TECHNIQUE: AP view of the chest. FINDINGS: Cardiac silhouette is enlarged. Pulmonary emphysema. No pneumothorax, pleural effusion, airspace cons olidation or pulmonary edema. Bones appear grossly intact. IMPRESSION: Emphysema without acute process of the chest. ACT 112: Negative or not required by law. The above report was generated using voice recognition software. It may contain grammatical, syntax o r spelling errors. Electronically signed by: Jacky Clement M.D. 03/18/2024 7:34 AM
[2024-03-18 07:43] LABS: BUN Creatinine Ratio 22.8 (10-20); Calcium 8.4 mg/dl (8.6-10.3); Creatinine Clr Calc Pharmacy 77.4 ml/min; Est GFR (African American) 103.6 ml/min; Est GFR (Non-African American) 89.4 ml/min; Magnesium 1.8 mg/dl (1.7-2.4); Potassium 4.2 mmol/L (3.5-5.1)
[2024-03-18 07:53] LABS: Basophils # (auto) 0.02 K/uL (0.00-0.20); Basophils % (auto) 0.2 %; Eosinophils # (auto) 0.02 K/uL (0.00-0.50); Eosinophils % (auto) 0.2 %; Immature Granulocytes # (auto) 0.12 K/uL (0.01-0.20); Lymphocytes # (auto) 0.72 K/uL (1.20-3.40); Monocytes # (auto) 0.22 K/uL (0.11-0.59); Monocytes % (auto) 1.8 %; Neutrophils # (auto) 10.93 K/uL (1.40-6.50); Neutrophils % (auto) 90.8 %
[2024-03-18 07:56] LABS: ANTI-Xa, UFH(UnfractionatedHep 0.48 IU/ml (0.3-0.7)
[2024-03-18] MEDS: predniSONE 20 MG TAB PO SCH (08:16)
[2024-03-18] MEDS: UMECLIDINIUM/VILANTEROL 62.5/25MCG 7 PUFFS/INHALER INH SCH (08:16)
[2024-03-18] MEDS: METOPROLOL SUCC 50MG EXT REL TAB PO SCH (08:16)
[2024-03-18] MEDS: FLUTICASONE FUROATE 100MCG 14 PUFFS/INHALER INH SCH (08:16)
[2024-03-18] MEDS ORDERED: NON-FORMULARY MEDICATION (Fluticasone-Umeclidin-Vilanter [Trelegy Ellipta] 100-62.5-25 mcg INH SCH (09:00)
--- NOTE | 2024-03-18 10:39 | Electrocardiogram Report ---
Test Reason : Blood Pressure : / mmHG Vent. Rate : 088 BPM Atrial Rate : 088 BPM P-R Int : 156 ms QRS Dur : 068 ms QT Int : 370 ms P-R-T Axes : 075 020 049 degrees QTc Int : 447 ms Sinus rhythm with Premature atrial complexes Septal infarct , age undetermined Abnormal ECG No previous ECGs available Confirmed by Horacio Pulliam ([id number]) on 03/18/2024 10:39:35 AM Referred By: REFERRED SELF Confirmed By:Horacio Pulliam
[2024-03-18] MEDS: PANTOprazole 40 MG TAB PO SCH (12:07)
[2024-03-18] MEDS: RIVAROXABAN 20 MG TAB PO SCH (14:34)
--- NOTE | 2024-03-18 14:43 | Cardiology Consultation ---
<Statement entered by Susanne Hand, DO - 03/18/24 14:53> I have reviewed the advanced practitioner's documentation and agree with the plan of care. I accept the responsibility for the associated risk. Pt seen in cardiology consultation due to newly found AF with RVR in the setting of RSV. Pt had been treated as an outpatient for URI-she had just completed a round of abx and prednisone. But she was still having worsening SOB and ultimately presented to the ER. In the ER she was found to be in AF with RVR- she converted to SR with IV cardizem. Electrocardiogram today reveals normal EF and cardiac chambers. mild MR I explained AF to the patient and discussed about CVA protection. Recommend Xaralto as I am hoping pt can afford this through the program-we will provider her information for this. Can start xaretlo and stop heparin tonight Agree with the higher dose of metoprolol to BID Discussed with pt about minimizing use of NSAIDS Consider zio patch upon discharge as an outpatient She will need f/u with cardiology as an outpt I discussed my recommendations with the hospitalist over the phone and he agreed with my plan Date of Consultation March 18, 2024 Assessment & Plan (1) Atrial fibrillation with rapid ventricular response: (2) COPD (chronic obstructive pulmonary disease): (3) Hypertension: (4) Hypothyroidism: Plan - patient presented with upper respiratory symptoms likely related to COPD exacerbation - she was found to have new onset AFib RVR and has since converted back to sinus rhythm per chart review approximately just before midnight - heart rate currently well-controlled on telemetry - reviewed risk of thromboembolic event with atrial fibrillation and recommend she be put on therapeutic anticoagulation for which she was agreeable - she is somewhat concerned about warfarin as she has had personal experiences with family members who have had negative outcomes - advises she is over income guidelines for pace however may be able to afford Xarelto, will need to provide her information on [employer] program for application - echocardiogram completed today reveals normal ejection fraction with no significant valvular disease and normal-sized atria Case discussed with Dr. Hand. Please see attestation for additional recommendations. MEENA Oconnor Department of Cardiology, [facility] This chart was completed in part utilizing Speech Voice Recognition Software. Grammatical errors, random word insertions, pronoun errors, and incomplete sentences are an occasional consequence of this system due to software limitations, ambient noise, and hardware issues. Any formal questions or concerns about the content, text, or information contained within the body of this dictation should be directly addressed to the provider for clarification. History of Present Illness Reason for Consultation: New Onset A Fib with RVR Requesting Physician: Hospitalist Attending Physician: Toney Harris MD History of Present Illness 78-year-old female seen in cardiology consultation today in regard to new onset AFib with RVR. She is a known past medical history of COPD, hypertension, hyperlipidemia, thyroid cancer status post thyroidectomy, hyponatremia, GERD, gout, history of tobacco use. has been not well with upper respiratory symptoms for the last 3 weeks. Was treated outpatient with oral antibiotics and steroids from her primary care provider. She was not improving and reached out to them for a follow up appointment but was unable to be seen until today. Last evening she felt so short of breath she felt that she was unable to breathe prompting a call to 911 for transport to the emergency room for further evaluation. Denies chest pain, palpitations, dizziness, syncope, edema, orthopnea and PND. Sttill has an ongoing cough and shortness of breath, feels better than presentation but not back to baseline as of yet. Allergies Allergy/AdvReac Type Severity Reaction Status Date / Time No Known Allergies Allergy Verified 03/17/24 22:17 Home Medications Medication Instructions Recorded Confirmed Type hydrochlorothiazide 25 mg tablet 25 mg PO DAILY 10/19/19 03/17/24 History levothyroxine 175 mcg tablet 175 mcg PO DAILY 10/19/19 03/17/24 History melatonin 10 mg capsule 10 mg PO HS 10/19/19 03/17/24 History metoprolol succinate 50 mg capsule 50 mg PO DAILY 10/19/19 03/17/24 History sprinkle, ext. release 24 hr esomeprazole magnesium 20 mg 20 mg PO DAILY 01/05/24 03/17/24 History capsule,delayed release (Nexium) fluticasone fur. 100 mcg-umeclid 1 inh inhalation DAILY 01/05/24 03/17/24 History 62.5 mcg-vilant 25 mcg inhalat.powder (Trelegy Ellipta) ibuprofen 200 mg capsule 400 mg PO AMHS 01/05/24 03/17/24 History albuterol sulfate 90 mcg/actuation 2 puff inhalation DIRECTED PRN 03/17/24 03/17/24 History aerosol inhaler Shortness Of Breath Or Wheezing alendronate 70 mg tablet 70 mg PO .QWEEK 03/17/24 03/17/24 History diphenhydramine HCl 25 mg capsule 25 mg PO HS 03/17/24 03/17/24 History (Benadryl) fluticasone propionate 50 1 spray intranasal QPM 03/17/24 03/17/24 History mcg/actuation nasal spray,suspension Patient History Medical History Thyroid cancer Surgical History Hx of thyroidectomy History of cholecystectomy Hx of tonsillectomy Family History Brother Diabetes Sister Anxiety Mother Asthma Denies family history of Ovarian cancer Prostate cancer Heart disease Breast cancer Colorectal cancer Social History Smoking Status: Never smoker Tobacco Type: Cigarettes Age Started Using Tobacco: 18; packs per day: 0.5; Cigarettes Per Day: 10; Second Hand Exposure: No; Do You Dip or Chew Tobacco: No; Hx Alcohol Use: No Hx Substance Use: No Preferred Language: Burundian Communication Ability: Effective Housing Installer Required: No Beliefs That Will Affect Care: None marital status: / Current Living Situation: Alone current occupational status: retired Other Information That Helps Us Care for You: No Feels Safe at Home: Yes Safety Concerns: Feels Safe At This Time Dental Care, Regularly: Yes Physical Activity Frequency: 5-6 Times per Week Assistive Devices: None Review of Systems Constitutional: + fatigue; no fever and no chills Respiratory: + cough, + chest congestion, + dyspnea o n exertion and + wheezing Cardiovascular: no chest pain, no palpitations and no syncope Gastrointestinal: no nausea and no vomiting Integumentary: no rash and no lesions Physical Exam Constitutional: well developed and well nourished; no acute distress Neck: trachea midline, no thyromegaly Respiratory: normal respiratory effort, + cough and + audible wheezes; no respiratory distress Auscultation: + rhonchi Cardiovascular: RRR, no murmur, no edema Vessels: no JVD and no carotid bruit Gastrointestinal (Abdomen): normal bowel sounds, soft, nontender, no hepatosplenomegaly Musculoskeletal: no cyanosis or clubbing, extremities motor strength 5/5 Skin: no rashes, warm and dry Psychiatric: A+Ox3, euthymic affect Speech: normal rate/rhythm/volume of speech Results & Data Vital Signs (Past 12 Hours) Vital Signs Temp Pulse Resp BP Pulse Ox O2 Del Method FiO2 03/18/24 13:37 75 19 94 Room Air 21 03/18/24 12:16 36.6 C 76 16 178/69 H 92 Room Air 03/18/24 07:53 36.8 C 74 16 176/77 H 92 Room Air 03/18/24 07:20 73 17 91 Room Air 21 03/18/24 03:00 36.7 C 76 16 148/72 H 93 Room Air Laboratory Results Cardiac Enzymes 03/17/24 Range/Units 19:28 AST 14 (13-39) U/L Troponin I High Sens 7.2 (0-14) pg/ml B-Natriuretic Peptide 133 H (0-100) pg/ml Coagulation 03/17/24 Range/Units 19:28 PT 10.6 (9.0-12.0) Seconds APTT 27 (21-31) Seconds B-Natriuretic Peptide 133 H (0-100) pg/ml CBC 03/17/24 03/18/24 Range/Units 19:28 06:57 WBC 13.46 H 12.03 H (4.8-10.8) K/ul RBC 4.51 4.31 (4.20-5.40) M/uL Hgb 14.2 13.6 (12.0-16.0) g/dl Hct 41.2 38.9 (37.0-47.0) % Plt Count 339 337 (130-400) K/uL Neut # (Auto) 11.43 H 10.93 H (1.40-6.50) K/uL Lymph # (Auto) 1.02 L 0.72 L (1.20-3.40) K/uL [place] # (Auto) 0.73 H 0.22 (0.11-0.59) K/uL Eos # (Auto) 0.12 0.02 (0.00-0.50) K/uL Baso # (Auto) 0.04 0.02 (0.00-0.20) K/uL Comprehensive Metabolic Panel 03/17/24 03/18/24 03/18/24 Range/Units 19:28 00:22 06:57 Sodium 129 L 130 L 131 L (136-145) mmol/L Potassium 3.9 4.2 (3.5-5.1) mmol/L Chloride 89 L 91 L (98-107) mmol/L Carbon Dioxide 30 29 (21-32) mmol/L BUN 16 13 (6-23) mg/dl Creatinine 0.77 0.57 L (0.6-1.2) mg/dl Glucose 126 H 126 H (70-99(Fasting)) mg/dl Calcium 8.5 L 8.4 L (8.6-10.3) mg/dl Direct Bilirubin 0.1 (0-0.2) mg/dl AST 14 (13-39) U/L ALT 14 (7-52) U/L Alkaline Phosphatase 73 (34-104) U/L Total Protein 7.1 (6.0-8.3) gm/dl Albumin 4.2 (3.4-5.0) gm/dl Intake and Output 03/17/24 03/18/24 03/18/24 22:59 06:59 14:59 Intake Total 250 / 2350 2100 / 2350 143.367 / 143.367 Balance 250 / 2350 2100 / 2350 143.367 / 143.367 Intake: IV 250 / 2350 2100 / 2350 143.367 / 143.367 Doxycycline Hyclate 100 mg In 100 / 100 Dextrose 5% Mini-B 100 ml @ 50 mls/hr IV NOW STA Rx#:[id number] Heparin Sodium/Dextrose 25,000 143.367 / 143.367 units In 500 ml @ 1,100 UNITS/ HR 22 mls/hr IV .[id number] [facility] Rx #:[id number] Lactated Ringer's 1,000 ml @ 1000 / 1000 200 mls/hr IV .Q5H ONE Rx#: [id number] Magnesium Sulfate / D5w 1 gm In 200 / 200 100 ml @ 200 mls/hr IV Q30M [facility] Rx#:[id number] Sodium Chloride 0.9% 1,000 ml @ 1000 / 1000 999 mls/hr IV .Q1H1M ONE Rx#: [id number] cefTRIAXone SODIUM 2,000 mg In 50 / 50 50 ml @ 100 mls/hr IV NOW STA Rx#:[id number] Other: # Unmeasured Voids 1 Weight 68.5 kg 70.5 kg Weight Measurement Method Built in Bedscale Built in Bedscale Diagnostic Findings Current Inpatient Medications Acetaminophen (Acetaminophen 325 Mg Tab) 650 mg PO Q4H PRN PRN Reason: Pain or Fever Stop: 04/17/24 01:14 Diclofenac Sodium (Diclofenac Sod 1% Gel 100 Gm Tube) 2 gm EXT Q6H PRN; Protocol PRN Reason: joint pain Stop: 04/17/24 05:08 Fluticasone Furoate (Fluticasone Furoate 100mcg 14 Puffs/Inhaler) 1 puffs INH DAILY FILIPE Stop: 04/17/24 08:59 Last Admin: 03/18/24 08:16 Dose: 1 puffs Hydroxyzine HCl (Hydroxyzine Hcl 10 Mg Tab) 10 mg PO QID PRN PRN Reason: Anxiety Stop: 04/16/24 23:05 Promethazine HCl 6.25 mg/ (Sodium Chloride) 50.25 mls @ 201 mls/hr IV Q6H PRN PRN Reason: Nausea And Vomiting Stop: 04/16/24 23:08 Lactated Ringer's (Lr) 1,000 mls @ 60 mls/hr IV .[id number] ONE Stop: 03/18/24 23:20 Last Admin: 03/18/24 06:43 Dose: 60 mls/hr Ipratropium [place] (Ipratropium [place] Neb Soln 0.02% 0.5mg/2.5ml Vial) 0.5 mg INH Q6R [facility] Stop: 04/17/24 00:59 Last Admin: 03/18/24 13:37 Dose: 0.5 mg Levalbuterol HCl (Levalbuterol 1.25 Mg/3 Ml Neb) 1.25 mg NEB Q6R FILIPE Stop: 04/17/24 00:59 Last Admin: 03/18/24 13:37 Dose: 1.25 mg Levothyroxine Sodium (Levothyroxine Sodium 150 Mcg Tablet) 150 mcg PO DAILYBB [facility] Stop: 04/17/24 06:29 Last Admin: 03/18/24 06:39 Dose: 150 mcg Melatonin (Melatonin 3 Mg Tab) 9 mg PO HS FILIPE Stop: 04/17/24 20:59 Metoprolol Succinate (Metoprolol Succ 50mg Ext Rel Tab) 50 mg PO BID FILIPE Stop: 04/17/24 08:59 Last Admin: 03/18/24 08:16 Dose: 50 mg Oxycodone HCl (Oxycodone Hcl Ir 5 Mg Tab (Immediate Release)) 5 mg PO Q4H PRN PRN Reason: Pain Stop: 03/31/24 23:08 Pantoprazole Sodium (Pantoprazole 40 Mg Tab) 40 mg PO DAILY FILIPE Stop: 04/17/24 08:59 Last Admin: 03/18/24 12:07 Dose: 40 mg Prednisone (Prednisone 20 Mg Tab) 20 mg PO DAILY FILIPE Stop: 03/22/24 08:59 Last Admin: 03/18/24 08:16 Dose: 20 mg Rivaroxaban (Rivaroxaban 20 Mg Tab) 20 mg PO Q24H FILIPE Stop: 04/17/24 14:29 Last Admin: 03/18/24 14:34 Dose: 20 mg Umeclidinium/Vilanterol (Umeclidinium/Vilanterol 62.5/25mcg 7 Puffs/Inhaler) 1 puffs INH DAILY FILIPE Stop: 04/17/24 08:59 Last Admin: 03/18/24 08:16 Dose: 1 puffs Laboratory Results WBC 12.03 K/ul (4.8-10.8) H 03/18/24 06:57 RBC 4.31 M/uL (4.20-5.40) 03/18/24 06:57 Hgb 13.6 g/dl (12.0-16.0) 03/18/24 06:57 Hct 38.9 % (37.0-47.0) 03/18/24 06:57 MCV 90.3 fL (80.0-100.0) 03/18/24 06:57 MCH 31.6 pg (25.0-34.0) 03/18/24 06:57 MCHC 35.0 g/dL (32.0-36.0) 03/18/24 06:57 RDW Std Deviation 43.9 fL (36.4-46.3) 03/18/24 06:57 RDW Coeff of Yuli 13.3 % (11.5-14.5) 03/18/24 06:57 Plt Count 337 K/uL (130-400) 03/18/24 06:57 MPV 9.8 fL (9.4-12.4) 03/18/24 06:57 Immature Gran % (Auto) 1.0 % 03/18/24 06:57 Neut % (Auto) 90.8 % 03/18/24 06:57 Lymph % (Auto) 6.0 % 03/18/24 06:57 Grimes % (Auto) 1.8 % 03/18/24 06:57 Eos % (Auto) 0.2 % 03/18/24 06:57 Baso % (Auto) 0.2 % 03/18/24 06:57 Neut # (Auto) 10.93 K/uL (1.40-6.50) H 03/18/24 06:57 Lymph # (Auto) 0.72 K/uL (1.20-3.40) L 03/18/24 06:57 [place] # (Auto) 0.22 K/uL (0.11-0.59) 03/18/24 06:57 Eos # (Auto) 0.02 K/uL (0.00-0.50) 03/18/24 06:57 Baso # (Auto) 0.02 K/uL (0.00-0.20) 03/18/24 06:57 Immature Gran # (Auto) 0.12 K/uL (0.01-0.20) 03/18/24 06:57 PT 10.6 Seconds (9.0-12.0) 03/17/24 19: INR 1.0 (0.9-1.1) 03/17/24 19: APTT 27 Seconds (21-31) 03/17/24 19: PTT Ratio 1.0 03/17/24 19: Heparin Anti-Xa, Unfract 0.48 IU/ml (0.3-0.7) 03/18/24 06:57 VBG pH 7.42 (7.36-7.41) H 03/17/24 19:28 VBG pCO2 52 mmHg (38-50) H 03/17/24 19:28 VBG pO2 27 mmHg 03/17/24 19:28 VBG HCO3 34 mmol/L 03/17/24 19:28 VBG O2 Saturation < 60.0 % 03/17/24 19:28 VBG Base Excess 7.6 mEq/L 03/17/24 19:28 Sodium 131 mmol/L (136-145) L 03/18/24 06:57 Potassium 4.2 mmol/L (3.5-5.1) 03/18/24 06:57 Chloride 91 mmol/L (98-107) L 03/18/24 06:57 Carbon Dioxide 29 mmol/L (21-32) 03/18/24 06:57 Anion Gap 11 (3-11) 03/18/24 06:57 BUN 13 mg/dl (6-23) 03/18/24 06:57 Creatinine 0.57 mg/dl (0.6-1.2) L 03/18/24 06:57 Est Cr Clr Drug Dosing 77.4 ml/min 03/18/24 06:57 Est GFR ( Amer) 103.6 ml/min 03/18/24 06:57 Est GFR (Non-Af Amer) 89.4 ml/min 03/18/24 06:57 BUN/Creatinine Ratio 22.8 (10-20) H 03/18/24 06:57 Glucose 126 mg/dl (70-99(Fasting)) H 03/18/24 06:57 Estimat Average Glucose 134 mg/dl 03/17/24 23:05 Hemoglobin A1c 6.3 % (4.5-5.6) H 03/17/24 23:05 Osmolality 267 mOsm/kg (280-300) L 03/17/24 19:28 Lactate 1.5 mmol/L (0.4-2.0) 03/18/24 12:02 Calcium 8.4 mg/dl (8.6-10.3) L 03/18/24 06:57 Magnesium 1.8 mg/dl (1.7-2.4) 03/18/24 06:57 Total Bilirubin 0.7 mg/dl (0.2-1.0) 03/17/24 19:28 Direct Bilirubin 0.1 mg/dl (0-0.2) 03/17/24 19:28 AST 14 U/L (13-39) 03/17/24 19:28 ALT 14 U/L (7-52) 03/17/24 19:28 Alkaline Phosphatase 73 U/L (34-104) 03/17/24 19:28 Troponin I High Sens 7.2 pg/ml (0-14) 03/17/24 19:28 B-Natriuretic Peptide 133 pg/ml (0-100) H 03/17/24 19:28 Total Protein 7.1 gm/dl (6.0-8.3) 03/17/24 19: Albumin 4.2 gm/dl (3.4-5.0) 03/17/24 19:28 Procalcitonin < 0.02 ng/ml (0-0.5) 03/17/24 19: TSH 0.027 uIu/ml (0.300-4.500) L 03/17/24 19: Free T4 1.84 ng/dl (0.61-1.60) H 03/17/24 19:28 Urine Color Yellow 03/17/24 19:53 Urine Appearance Clear (Clear) 03/17/24 19:53 Urine pH 6.5 (4.5-7.5) 03/17/24 19:53 Ur Specific [place] 1.009 (1.000-1.030) 03/17/24 19:53 Urine Protein Negative (Negative) 03/17/24 19:53 Urine Glucose (UA) Negative (Negative) 03/17/24 19:53 Urine Ketones Negative (Negative) 03/17/24 19:53 Urine Blood 1+ (Negative) H 03/17/24 19:53 Urine Nitrite Negative (Negative) 03/17/24 19:53 Urine Bilirubin Negative (Negative) 03/17/24 19:53 Urine Urobilinogen Negative (Negative) 03/17/24 19:53 Ur Leukocyte Esterase Trace (Negative) H 03/17/24 19:53 Urine WBC (Auto) 0-5 /hpf (0-5) 03/17/24 19:53 Urine RBC (Auto) 6-10 /hpf (0-2) H 03/17/24 19:53 U Hyaline Cast (Auto) 0-2 /lpf (0-2) 03/17/24 19:53 U Epithel Cells (Auto) 0-2 /hpf (0-2) 03/17/24 19:53 Urine Bacteria (Auto) None Seen (None Seen) 03/17/24 19:53 Urine Osmolality 272 mOsm/kg (500-800) L 03/18/24 Unknown Ur Random Sodium 62 mmol/L 03/18/24 Unknown Adenovirus (PCR) Not Detected (NotDetected) 03/17/24 20:40 B. pertussis DNA (PCR) Not Detected (NotDetected) 03/17/24 20:40 B.parapertussis DNA PCR Not Detected (NotDetected) 03/17/24 20:40 C. pneumoniae DNA (PCR) Not Detected (NotDetected) 03/17/24 20:40 Coronavirus OC43 (PCR) Not Detected (NotDetected) 03/17/24 20:40 Coronavirus HKU1 (PCR) Not Detected (NotDetected) 03/17/24 20:40 Coronavirus 229E (PCR) Not Detected (NotDetected) 03/17/24 20:40 SARS-CoV-2 (PCR) Not Detected (NotDetected) 03/17/24 20:40 Coronavirus NL63 (PCR) Not Detected (NotDetected) 03/17/24 20:40 Human Metapneumovir PCR Not Detected (NotDetected) 03/17/24 20:40 Influenza Type A (PCR) Not Detected (NotDetected) 03/17/24 20:40 Influenza Type B (PCR) Not Detected (NotDetected) 03/17/24 20:40 M. pneumoniae (PCR) Not Detected (NotDetected) 03/17/24 20:40 Parainfluenza 1 (PCR) Not Detected (NotDetected) 03/17/24 20:40 Parainfluenza 2 (PCR) Not Detected (NotDetected) 03/17/24 20:40 Parainfluenza 3 (PCR) Not Detected (NotDetected) 03/17/24 20:40 Parainfluenza 4 (PCR) Not Detected (NotDetected) 03/17/24 20:40 RSV (PCR) Not Detected (NotDetected) 03/17/24 20:40 Entero/Rhino (PCR) DETECTED (NotDetected) A 03/17/24 20:40 Impressions Chest X-Ray 03/17/24 19:04 XR chest 1V portable HISTORY: 78 years-old Female Sepsis acute sepsis COMPARISON: CT chest of same day TECHNIQUE: AP view of the chest. FINDINGS: Cardiac silhouette is enlarged. Pulmonary emphysema. No pneumothorax, pleural effusion, airspace consolidation or pulmonary edema. Bones appear grossly intact. IMPRESSION: Emphysema without acute process of the chest. ACT 112: Negative or not required by law. The above report was generated using voice recognition software. It may contain grammatical, syntax or spelling errors. Electronically signed by: Jacky Clement M.D. 03/18/2024 7:[address] 03/17/24 23:01 Exam(s): CT CHEST With Contrast IV Amt: 88 cc's optiray 320 EXAM: CT Chest With Intravenous Contrast CLINICAL HISTORY: Reason for exam: recurrent cough. TECHNIQUE: Axial computed tomography images of the chest with intravenous contrast. CTDI is 13.44 mGy and DLP is 454.18 mGy-cm. Automated exposure control was utilized for the study. A dose lowering technique was utilized adhering to the principles of ALARA. CONTRAST: Patient received 88 cc's optiray 320 of IV contrast COMPARISON: No relevant prior studies available. FINDINGS: Lungs: Centrilobular emphysema. No consolidation or mass. Pleural space: Unremarkable. No pleural effusion or pneumothorax. Heart: Coronary artery atherosclerosis. No cardiomegaly or pericardial effusion. Bones/joints: Unremarkable. No acute fracture. No dislocation. Soft tissues: Unremarkable. Vasculature: Thoracic aortic atherosclerosis without aneurysm or dissection. Normal caliber main pulmonary artery. Lymph nodes: Unremarkable. No adenopathy. Kidneys and ureters: Partially imaged simple left kidney cyst measuring 3 cm; no further follow-up required. IMPRESSION: 1. No acute findings. 2. Emphysematous changes noted. Pulmonary emphysema is an independent risk factor for lung cancer. Recommend patient be evaluated for low-dose cancer screening protocol. Electronically signed by: Miguelangel Vu M.D. 03/18/24 01:24 AM (2) COPD (chronic obstructive pulmonary disease) COPD type: unspecified COPD Qualified Code(s): J44.9 - Chronic obstructive pulmonary disease, unspecified
--- NOTE | 2024-03-18 15:08 | Hospitalist Progress Note ---
Date of Service March 18, 2024 Assessment & Plan (1) Atrial fibrillation with rapid ventricular response: Plan: Atrial fibrillation with RVR --ECHO: Sinus rhythm during the study. EF 55 to 60%. Grade 1 diastolic dysfunction. Known dilated cardiac chambers. Mild MR. --CT Chest:No acute findings. Emphysematous changes noted. Spontaneously converted to sinus IV Cardizem discontinued Metoprolol succinate dose increased to 50 mg twice a day IV heparin transition to Xarelto Appreciate cardiology input Needs follow-up with cardiology on discharge Acute COPD exacerbation Likely precipitated by her rhinovirus infection Rhinovirus infection Possible sepsis Recently completed outpatient doxycycline, prednisone course prescribed by PCP. 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 Hand to be abstinent from tobacco use Prediabetes HbA1c 6.3 Counseled lifestyle changes Hypomagnesemia Replete electrolytes as needed Monitor Abnormal thyroid function test Low TSH, elevated free T4 H/O thyroid cancer S/P surgery Continue levothyroxine--dose decreased to 150 mcg daily Will need repeat thyroid function test as outpatient Hypertension BP elevated likely situational Avoid NSAID use (on ibuprofen at home) Steroids could be contributing as well Continue metoprolol HCTZ on hold Will consider adding other antihypertensives if needed Chronic hyponatremia Will consider to discontinue HCTZ on discharge Sodium 131 today Monitor sodium levels GERD continue PPI DVT Px: Xarelto Code Status Full code Admission and Anticipated Discharge Date Admission Date: March 17, 2024 Subjective Patient is seen and examined at bedside Admits to have cough with yellowish expectoration Dyspnea better when compared to yesterday Denies any chest pain, nausea, vomiting, abdominal pain Discussed with cardiology today No other complaints Review of Systems Review of Systems: All systems reviewed & are unremarkable except as noted in Subjective Physical Exam Physical Exam: Physical Exam: Vitals signs as noted above General Appearance:Moderately built and nourished, no apparent distress Head: normocephalic, Atraumatic Eyes: normal inspection, EOMI Neck: supple, Trachea midline Respiratory/Chest: Decreased breath sounds, B/L wheezes/Rhonchi, No accessory muscle use Cardiovascular: S1, S2, No murmur Abdomen/GI:Soft, Non tender, Bowel sounds present Extremities/Musculoskeletal:normal inspection, no edema Neurologic/Psych:AAOX3, grossly no focal neurological deficits Skin: normal color, warm Results & Data Results & Data Vital Signs (Past 12 Hours) Vital Signs Temp Pulse Resp BP Pulse Ox O2 Del Method FiO2 03/18/24 13:37 75 19 94 Room Air 21 03/18/24 12:16 36.6 C 76 16 178/69 H 92 Room Air 03/18/24 07:53 36.8 C 74 16 176/77 H 92 Room Air 03/18/24 07:20 73 17 91 Room Air 21 03/18/24 03:00 36.7 C 76 16 148/72 H 93 Room Air Laboratory Results Short CBC 03/17/24 03/18/24 Range/Units 19:28 06:57 WBC 13.46 H 12.03 H (4.8-10.8) K/ul Hgb 14.2 13.6 (12.0-16.0) g/dl Hct 41.2 38.9 (37.0-47.0) % Plt Count 339 337 (130-400) K/uL BMP 03/17/24 03/18/24 03/18/24 19:28 00:22 06:57 Sodium 129 L 130 L 131 L Potassium 3.9 4.2 Chloride 89 L 91 L Carbon Dioxide 30 29 BUN 16 13 Creatinine 0.77 0.57 L Glucose 126 H 126 H Calcium 8.5 L 8.4 L Liver Function 03/17/24 Range/Units 19:28 Total Bilirubin 0.7 (0.2-1.0) mg/dl Direct Bilirubin 0.1 (0-0.2) mg/dl AST 14 (13-39) U/L ALT 14 (7-52) U/L Alkaline Phosphatase 73 (34-104) U/L Albumin 4.2 (3.4-5.0) gm/dl Urine 03/17/24 Range/Units 19:53 Urine Color Yellow Urine Appearance Clear (Clear) Urine pH 6.5 (4.5-7.5) Ur Specific [place] 1.009 (1.000-1.030) Urine Protein Negative (Negative) Urine Glucose (UA) Negative (Negative)
[2024-03-18] MEDS: MELATONIN 3 MG TAB PO SCH (20:32)
--- OUTSIDE RECORDS SUMMARY | 2024-03-18 23:31 | External Medical Summary | Continuity of Care Document ---
Author Name Unknown Organization Family Practice [facility], [facility] Address [address] [place] [address] Phone [phone] Care Team Providers Care Residential Subcontractor Name Role Phone [facility] [place] [facility] [place] Care Team Information Mat Packer [phone] Barry Jeong MD Care Team Information Receiv er [phone] [facility] Care Team Information Mat Packer [phone] Santosh Beverly MD Care Team Information Mat Packer [phone] [facility] - Dermatology Care Team Information Mat Packer [phone] Ines Barton Care Team Information Mat Packer [phone] [facility] - Dermatology Care Team Information Mat Packer Unavailable Problems Active Problems Provider Date Postoperative hypothyroidism Santosh Beverly MD On set: 08/30/2008 Essential hypertension Santosh Beverly MD Onset: 1 11/11/2014 Mixed hyperlipidemia Santosh Beverly MD Onset: 10/2015 History of malignant neoplasm of thyroid Santosh mcgrath MD Onset: 09/11/2015 Note: around age 55-60 Gastroesophageal reflux disease Santosh Beverly MD Onset: 08/30/2008 Tobacco dependence, continuous Santosh Beverly MD Onset: 03/11/2015 Osteopenia Santosh Beverly MD Onset: 06/09/20 16 Allergic rhinitis Santosh Beverly MD Onset: 2015 Chronic obstructive lung disease Cesar Fabian Onset: 10/28/2017 Tobacco use Chente Martinez JR, PA-C Onset: 12/14/2017 Social History Type Date Description Comments Sex Unknown Tobacco Use Reviewed: 05/24/23 Current Cigar ette Smoker 5-10 Cigarettes Daily Smoking Status Reviewed: 08/25/23 Current Cigar ette Smoker 5-10 Cigarettes Daily Tobacco Use Reviewed: 05/24/23 Never Smoked Cigars Tobacco Use Reviewed: 05/24/23 Never Smoked A Pipe Smokeless Tobacco 05/24/2023 Never Used Smokeless To bacco ETOH Use Denies alcohol use Recreational Drug Use Denies Drug Use Exercise Type/Frequency GolMassage Envy Allergies and adverse reactions Active Allergies Criticality Reaction | Severity Comments Date NKDA Unable to assess criticality 12/23/2007 Latex Unable to assess criticality 05/24/2023 Medications Active Medications SIG Qnty Indications Order ing Provider Date Diphenhydramine [id number] Capsules take one tab daily prn 5caps Santosh Beverly MD 02/04/2024 Metoprolol Succinate ER50mg Tablets ER 24HR Take 1 Tablet By Mouth Every Day 90tabs I10 Santosh Beverly MD 09/11/2021 Trelegy Oftuhgm436-38.5-25mcg/A ct Aerosol Use 1 puff By Mouth Every Day 60units J44.9 Santosh Beverly MD 12/14/2017 Slqmyoiijmniddperhj87vt Tablets Take 1 Tablet By Mouth Every Day 90tabs I10 Santosh Beverly MD 12/14/[address] 1 by mouth every day 90caps K21.9 Santosh Beverly MD 09/13/2014 Levothyroxine Bpdjah542euu Tablets Take 1 Tablet By Mouth Every Day 90tabs E89.0 Santosh Beverly MD 08/30/2008 Hkigpphtb96cy Capsules take one tablet by mouth every night at bedtime as needed Unknown Flonase Allergy Hekuzm70sxs/Act Suspension 2 sprays each nostril daily Unknown Medications Administered in Office Medication SIG Qnty Indications Ordering Provider Date Injection Kenalog 10 MG NDC [id number] Graciela Nina 07/04/2016 Injection Kenalog 10 MG NDC [id number] Santosh Beverly MD 01/2015 Injection Kenalog 10 MG NDC [id number] Santosh Beverly MD Injection Kenalog 10 MG NDC [id number] Santosh Beverly MD Immunizations CPT Code Status Date Vaccine Lot # [id number] Given 08/25/2023 Influenza Vaccine High Do se 0.5ML Age 65 & > [id number] 45453 Given 08/25/2023 Sarscov2 Vaccin e 50 mcg/0.5 ML For Im Use 12 Yrs And Older [id number] 61378 Given 08/24/2022 Moderna Sars-Co v-2 (Covid-19) Vaccine, BiValent Booster [id number] 22290 Given 08/24/2022 Influenza Vaccine High Do se 0.5ML Age 65 & > [id number] 79889 Given 11/27/2021 Pfizer Sars-Cov -2 (Cov-19) vacc 30mcg/0.3ML 12Y+ EMR Doc Only 35671 Given 08/21/2021 Influenza Vaccine High Do se 0.5ML Age 65 & > [id number] 74981 Given 02/27/2021 Pfizer Sars-Cov -2 (Cov-19) vacc 30mcg/0.3ML 12Y+ EMR Doc Only 72977 Given 02/06/2021 Pfizer Sars-Cov -2 (Cov-19) vacc 30mcg/0.3ML 12Y+ EMR Doc Only 49837 Given 08/13/2020 Influenza Vaccine High Do se 0.5ML Age 65 & > [id number] 99599 Given 10/19/2019 Influenza Vacci ne, Inactivated, Subunit, Adjuvanted, For [facility] [place] [id number] 85004 Given 07/25/2018 Influenza Vac, Split, Preservative Free High Dose Age 65 & > [id number] 22232 Given 10/14/2017 Influenza Vac, Split, Preservative Free High Dose Age 65 & > [id number] 65670 Given 09/22/2016 Influenza Vac, Split, Preservative Free High Dose Age 65 & > [id number] 59555 Given 03/18/2016 Pneumococcal Conjugate-Pr evnar 13 [id number] 97547 Given 08/28/2015 Influenza Virus Vaccine, Quadrivalent, Im Use [id number] 30667 Given 09/13/2014 Influenza Virus Vaccine, Quadrivalent, Im Use [id number] 89955 Given 06/04/2014 Zostavax Vaccine 74775 Given 11/07/2013 Pneumococcal Vaccine/Pneu movax 23 [id number] 40276 Given 11/07/2013 Influenza Vac, Split 3 Yr s And Up 43308 Given 10/11/2012 Influenza Vac, Split 3 Yr s And Up [id number] 06320 Given 09/22/2011 Influenza Vac, Split 3 Yr s And Up [id number] 76933 Given 10/21/2010 Influenza Vac, Split 3 Yr s And Up [id number] 68025 Given 08/30/2008 Td (Tetanus & D iphtheria) Decavac or Tenivac Age 7 & > [id number] Vital Signs Date Vital Result Comment 08/25/2023 10:32am BP Systolic 146 mmHg BP Diastolic 82 mmHg BP Systolic Recheck 136 mmHg BP Diastolic Recheck 68 mmHg Heart Rate 63 /min Respiratory Rate 16 /min Weight 159.00 lb Weight 72.122 kg Height 65.5 inches 5'5.50" BMI (Body Mass Index) 26.1 kg/m2 [place] Body Weight 125 lb 07/08/2023 10:53am BP Systolic 146 mmHg BP Diastolic 94 mmHg Body Temperature 97.2 F Heart Rate 71 /min Respiratory Rate 14 /min Weight 159.00 lb Weight 72.122 kg Height 65.5 inches 5'5.50" BMI (Body Mass Index) 26.1 kg/m2 O2 % BldC Oximetry 96 % [place] Body Weight 125 lb Results Test Acquired Date Facility Test Result H/L Range N ote Comp. Met 02/23/2024 [facility] [address] [place] [address] [phone] Glucose 95 mg/dL 70-110 BUN 12 mg/dL 6-25 Creatinine 0.8 mg/dL 0.5-1.2 Sodium 130 mEq/L Low 135-145 Potassium 3.7 mEq/L 3.5-5.0 Chloride 87 mEq/L Critical low 95-107 1 Co-2 30 mEq/L 24-31 Alk Phos 82 IU/L 43-122 Alt(SGPT) 15 IU/L 10-40 Ast(Sgot) 19 IU/L 3-42 T.Bilirubin 1.0 mg/dL 0.1-1.3 Calcium 9.5 mg/dL 8.5-10.6 Tot.Protein 7.0 g/dL 5.8-8.0 Albumin 4.6 g/dL 3.0-5.2 Globulin 2.4 g/dL 2.0-3.4 GFR 74 ML/MIN/1.73SQM >60 Lipid 02/23/2024 [facility] [address] [place] [address] [phone] Cholesterol 180 mg/dL 0-200 2 Triglyceride 97 mg/dL 0-150 3 HDLD 56 mg/dL See Comment 4 Measured LDL 119 mg/dL 0-130 5 Calc VLDL 19.4 mg/dL See Comment 6 Chol/HDL 3.2 RATIO See Comment 7 Non-HDL 124 mg/dL See Comment 8 TSH With Reflex 02/23/2024 [facility] [address] [place] [address] [phone] TSH (Reflex) 0.02 uIU/mL Low 0.50-6.00 Laboratory test finding 02/23/2024 [facility] [address] [place] [address] [phone] FRT4 2.23 ng/dL High 0.75-1.54 1 CRITICAL RESULTS GUANAKO IFIED, FAXED, AND CALLED TO [facility] AT 3:52 ON 02/23/24 WK 2 CHOLESTEROL Less than 200mg/dl Low risk 201-239 mg/dl Borderline risk Equal to or greater 240mg/dl High risk 3 TRIGLYCERIDES Less than 150mg/dl Normal 150-199mg/dl Borderline 200-499mg/dl High Greater than 500mg/dl Very High 4 HDL <40mg/dl Elevated Risk 41-59mg/dl Risk >=60mg/dl Least Risk 5 LDL <100mg/dl Optimal 100-129mg/dl Near Optimal 130-159mg/dl Borderline High 160-189mg/dl High >=190 Very High 6 VLDL Less than 30mg/dl Normal 7 CHOL/HDL <4.0 Optimal 4.0-5.0 Borderline >6.0 High Risk 8 NON-HDL 30mg/dl higher than LDL Target Procedures Date Code Description Status 02/23/2024 71551 Venipuncture Routine Complet ed 10/04/2023 561941746 Bone Mineral Density Test Co mpleted 10/04/2023 [id number] Mammogram Completed Medical Devices Description No Information Available Encounters Description No Information Available Assessments Date Code Description Provider 02/23/2024 E78.2 Mixed hyperlipidemia Santosh mcgrath MD 02/23/2024 E78.2 Mixed hyperlipidemia Sheila ille Nurse 02/23/2024 E89.0 Postprocedural hypothyroidis cesar Beverly MD 02/23/2024 E89.0 Postprocedural hypothyroidis cesar Maurer Nurse Plan of Treatment Future Appointment(s):* 03/03/2024 10:30 am - Santosh Beverly MD at [place] 08/25/2023 - Santosh Beverly MD* J44.9 Chronic obstructive pulmonary disease, unspecified* Comments:* 1. sx stable 2. cont inhalers 3. f/u 6 months * I10 Essential (primary) hypertension* Comments:* 1. repeat BP well controlled today 2. cont with metoprolol and HCTZ 3. f/u 6 months * E78.2 Mixed hyperlipidemia* Comments:* 1. FLP borderline 2. cont to monitor 3. f/u 6 months * Follow up:* 6 months with labs prior * E89.0 Postprocedural hypothyroidism* Comments:* 1. unknown control 2. check labs 3. f/u 6 months * K21.9 Gastro-esophageal reflux disease without esophagitis* Comments:* 1. sx well controlled 2. cont esomeprazole 3. f/u 6 months * F17.210 Nicotine dependence, cigarettes, uncomplicated * Z00.00 Encounter for general adult medical examination without abnormal findings* Comments:* 1. well adult female 2. labs reviewed 3. DEXA ordered 4. mammo ordered 5. routine imm utd (COVID booster and flu shot today) 6. f/u 1 yr * Z23 Encounter for immunization * M79.675 Pain in left toe(s) * Z78.0 Asymptomatic menopausal state * Z12.31 Encounter for screening mammogram for malignant neoplasm of breast Functional Status Description No Information Available Mental Status Description No Information Available Referrals Description No Information Available
--- OUTSIDE RECORDS SUMMARY | 2024-03-18 23:31 | External Medical Summary ---
Continuity of Care Document (CCD) Created on: February 23, 2024 Lupe Roblero External Reference #: [id number] Sex: Female Author Name Unknown Organization [facility], [facility] Address [address] [place] [address] Phone [phone] Care Team Providers Care Wood Cutter Name Role Phone [facility] Medicine Care Team Information Lay Out Worker [phone] Barry Jeong MD Care Team Information Receiv er [phone] [facility] Care Team Information Lay Out Worker [phone] Santosh Beverly MD Care Team Information Lay Out Worker [phone] [facility] - Dermatology Care Team Information Lay Out Worker [phone] Ines Barton Care Team Information Lay Out Worker [phone] [facility] - Dermatology Care Team Information Lay Out Worker Unavailable Problems Active Problems Provider Date Postoperative [...] Drug Use Denies Drug Use Exercise Type/Frequency Golipnexus Allergies and adverse reactions Active Allergies Criticality Reaction | Severity Comments Date NKDA Unable to assess criticality 12/23/2007 Latex Unable to assess criticality 05/24/2023 Medications Active Medications SIG Qnty Indications Order ing Provider Date Diphenhydramine DGL88nw Capsules take one tab daily prn 5caps Santosh Beverly MD 02/04/2024 Metoprolol Succinate ER50mg Tablets ER 24HR Take 1 Tablet By Mouth Every Day 90tabs I10 Santosh Beverly MD 09/11/2021 Trelegy Oifjnql337-25.5-25mcg/A ct Aerosol Use 1 puff By Mouth Every Day 60units J44.9 Santosh Beverly MD 12/14/2017 Mghescycrzusnqzdejr76ne Tablets Take 1 Tablet By Mouth Every Day 90tabs I10 Santosh Beverly MD 12/14/[address] 1 by mouth every day 90caps K21.9 Santosh Beverly MD 09/13/2014 Levothyroxine Atwdbo108eql Tablets Take 1 Tablet By Mouth Every Day 90tabs E89.0 Santosh Beverly MD 08/30/2008 Mefewprrs15zh Capsules take one tablet by mouth every night at bedtime as needed Unknown Flonase Allergy Hscjqg35otp/Act Suspension 2 sprays each nostril daily Unknown Medications Administered in Office Medication SIG Qnty Indications Ordering Provider Date Injection Kenalog 10 MG NDC [id number] Graciela Nina 07/04/2016 Injection Kenalog 10 MG NDC 01621484427Cxodqlmbf Santosh Beverly MD 01/2015 Injection Kenalog 10 MG NDC [id number] Santosh Beverly MD Injection Kenalog 10 MG NDC [id number] Santosh Beverly MD Immunizations CPT Code Status Date Vaccine Lot # [id number] Given 08/25/2023 Influenza Vaccine High Do se 0.5ML Age 65 & > [id number] 09820 Given 08/25/2023 Sarscov2 Vaccin e 50 mcg/0.5 ML For Im Use 12 Yrs And Older [id number] 77832 Given 08/24/2022 Moderna Sars-Co v-2 (Covid-19) Vaccine, BiValent Booster 12y+ [id number] 77798 Given 08/24/2022 Influenza Vaccine High Do se 0.5ML Age 65 & > [id number] 19389 Given 11/27/2021 Pfizer Sars-Cov -2 (Cov-19) vacc 30mcg/0.3ML 12Y+ EMR Doc Only 07427 Given 08/21/2021 Influenza Vaccine High Do se 0.5ML Age 65 & > [id number] 47876 Given 02/27/2021 Pfizer Sars-Cov -2 (Cov-19) vacc 30mcg/0.3ML 12Y+ EMR Doc Only 66189 Given 02/06/2021 Pfizer Sars-Cov -2 (Cov-19) vacc 30mcg/0.3ML 12Y+ EMR Doc Only 10734 Given 08/13/2020 Influenza Vaccine High Do se 0.5ML Age 65 & > [id number] 33591 Given 10/19/2019 Influenza Vacci ne, Inactivated, Subunit, Adjuvanted, For [facility] [place] [id number] 44468 Given 07/25/2018 Influenza Vac, Split, Preservative Free High Dose Age 65 & > [id number] 44166 Given 10/14/2017 Influenza Vac, Split, Preservative Free High Dose Age 65 & > [id number] 51793 Given 09/22/2016 Influenza Vac, Split, Preservative Free High Dose Age 65 & > [id number] 72137 Given 03/18/2016 Pneumococcal Conjugate-Pr evnar 13 [id number] 00922 Given 08/28/2015 Influenza Virus Vaccine, Quadrivalent, Im Use [id number] 36683 Given 09/13/2014 Influenza Virus Vaccine, Quadrivalent, Im Use [id number] 96659 Given 06/04/2014 Zostavax Vaccine 39417 Given 11/07/2013 Pneumococcal Vaccine/Pneu movax 23 [id number] 61742 Given 11/07/2013 Influenza Vac, Split 3 Yr s And Up 79095 Given 10/11/2012 Influenza Vac, Split 3 Yr s And Up [id number] 66150 Given 09/22/2011 Influenza Vac, Split 3 Yr s And Up [id number] 64704 Given 10/21/2010 Influenza Vac, Split 3 Yr s And Up [id number] 33270 Given 08/30/2008 Td (Tetanus & D iphtheria) Decavac or Tenivac Age 7 & > [id number] Vital Signs Date Vital Result Comment 08/25/2023 10:32am BP Systolic 146 mmHg BP Diastolic 82 mmHg BP Systolic Recheck 136 mmHg BP Diastolic Recheck 68 mmHg Heart Rate 63 /min Respiratory Rate 16 /min Weight 159.00 lb Weight 72.122 kg Height 65.5 inches 5'5.50" BMI (Body Mass Index) 26.1 kg/m2 [place] Body Weight 125 lb 07/08/2023 10:53am BP Systolic 146 mmHg BP Diastolic 94 mmHg Body Temperature 97.2 F Heart Rate 71 /min Respiratory Rate 14 /min Weight 159.00 lb Weight 72.122 kg Height 65.5 inches 5'5.50" BMI (Body Mass Index) 26.1 kg/m2 O2 % BldC Oximetry 96 % [place] Body Weight 125 lb Procedures Date Code Description Status 02/23/2024 86940 Venipuncture Routine Complet ed 10/04/2023 [id number] Bone Mineral Density Test Co mpleted 10/04/2023 67750322 Mammogram Completed 08/25/2023 G0008 Influenza Admin Completed 08/25/2023 3079F PVRP Diastolic BP 80-89 MMHG Completed 08/25/2023 3077F PVRP Systolic BP >/= 140 MMH G Completed 08/25/2023 1101F PT SCR Future Fall Risk, No Fall Or 1 W/Out Injury Completed Medical Devices Description No Information Available Encounters Type Date Location Provider Dx Diagnosis Office Visit 08/25/2023 10:45a Libertad Beverly MD J44.9 Chronic obstruc tive pulmonary disease, unspecified I10 Essential (primary) hypertension E78.2 Mixed hyperlipidemia E89.0 Postprocedural hypot hyroidism K21.9 Gastro-esophageal re flux disease without esophagitis F17.210 Nicotine dependence, cigarettes, uncomplicated Z00.00 Encntr for general a dult medical exam w/o abnormal findings Z23 Encounter for immuni zation M79.675 Pain in left toe(s) Z78.0 Asymptomatic [place] Z12.31 Encntr screen mammog [place] for malignant neoplasm of breast Assessments Date Code Description Provider 02/23/2024 E78.2 Mixed hyperlipidemia Sheila ben Nurse 02/23/2024 E89.0 Postprocedural hypothyroidis cesar Maurer Nurse 08/25/2023 J44.9 Chronic obstruct [place] pulmonary disease, unspecified Santosh Beverly MD 08/25/2023 I10 Essential (primary) hyperten valdo Santosh Beverly MD 08/25/2023 E78.2 Mixed hyperlipidemia Santosh mcgrath MD 08/25/2023 E89.0 Postprocedural hypothyroidis m Santosh Beverly MD 08/25/2023 K21.9 Gastro-esophagea l reflux disease without esophagitis Santosh Beverly MD 08/25/2023 F17.210 Nicotine dependence, cigaret darrell, uncomplicated Santosh Beverly MD 08/25/2023 Z00.00 Encounter for ge neral adult medical examination without abnormal findings Santosh Beverly MD 08/25/2023 Z23 Encounter for immunization A llmarshall Beverly MD 08/25/2023 M79.675 Pain in left toe(s) Santosh montes MD 08/25/2023 Z78.0 Asymptomatic menopausal stat e Santosh Beverly MD 08/25/2023 Z12.31 Encounter for sc reening mammogram for malignant neoplasm of breast Santosh Beverly MD Plan of Treatment Future Appointment(s):* 03/03/2024 10:30 am - Santosh Beverly MD at [place] 08/25/2023 - Santosh Beverly MD* J44.9 Chronic [...]
--- OUTSIDE RECORDS SUMMARY | 2024-03-18 23:31 | External Medical Summary | Continuity of Care Document ---
Author Name Unknown Organization [facility] Address [address] [place] [address] Phone [phone] Care Team Providers Care Hand Zipper Trimmer Name Role Phone [facility] rts Medicine Care Team Information Cell Feed Department Supervisor [phone] Barry Jeong MD Care Team Information Receiv er [phone] [facility] Care Team Information Cell Feed Department Supervisor [phone] Santosh Beverly MD Care Team Information Cell Feed Department Supervisor [phone] [facility] - Dermatology Care Team Information Cell Feed Department Supervisor [phone] Ines Barton Care Team Information Cell Feed Department Supervisor [phone] [facility] - Dermatology Care Team Information Cell Feed Department Supervisor Unavailable Problems Active Problems Provider Date Postoperative [...] use Chente Martinez JR, PA-C Onset: 12/14/2017 Osteoporosis Santosh Beverly MD Onset: 03/03/20 24 Social History Type Date Description Comments Sex Unknown Tobacco Use Reviewed: 05/24/23 Current Cigar ette Smoker 5-10 Cigarettes Daily Smoking Status Reviewed: 03/03/24 Current Cigar ette Smoker 5-10 Cigarettes Daily Tobacco Use Reviewed: 05/24/23 Never Smoked Cigars Tobacco Use Reviewed: 05/24/23 Never Smoked A Pipe Smokeless Tobacco 05/24/2023 Never Used Smokeless To bacco ETOH Use Denies alcohol use Recreational Drug Use Denies Drug Use Exercise Type/Frequency Golfs Allergies and adverse reactions Active Allergies Criticality Reaction | Severity Comments Date NKDA Unable to assess criticality 12/23/2007 Latex Unable to assess criticality 05/24/2023 Medications Active Medications SIG Qnty Indications Order ing Provider Date Alendronate Izlpps29bj Tablets take 1 tablet once per week 4tabs M81.0 Santosh Beverly MD 03/03/2024 Doxycycline Iytooflusjs928it Capsules 1 by mouth twice a day x 10 days 20caps J44.1 Santosh Beverly MD 03/03/2024 - 03/13/2024 Zlmsotcevb61bd Tablets 3 tabs daily x 5 days, then 2 tabs daily x5 days, then 1 tab daily x 5 days, then stop. 30tabs J44.1 Santosh Beverly MD 03/03/2024 - 03/18/2024 Diphenhydramine ZPT39gu Capsules take one tab daily prn 5caps Santosh Beverly MD 02/04/2024 Metoprolol Succinate ER50mg Tablets ER 24HR Take 1 Tablet By Mouth Every Day 90tabs I10 Santosh Beverly MD 09/11/2021 Trelegy Qylxhkg918-85.5-25mcg/A ct Aerosol Use 1 puff By Mouth Every Day 60units J44.9 Santosh Beverly MD 12/14/2017 Gqcaumprffevuxyeqfj41oy Tablets Take 1 Tablet By Mouth Every Day 90tabs I10 Santosh Beverly MD 12/14/[address] 1 by mouth every day 90caps K21.9 Santosh Beverly MD 09/13/2014 Levothyroxine Jvmzaw657ere Tablets Take 1 Tablet By Mouth Every Day 90tabs E89.0 Santosh Beverly MD 08/30/2008 Yaknwewhv87pf Capsules take one tablet by mouth every night at bedtime as needed Unknown Flonase Allergy Ezsuha30ubu/Act Suspension 2 sprays each nostril daily Unknown Medications Administered in Office Medication SIG Qnty Indications Ordering Provider Date Injection Kenalog 10 MG NDC [id number] Graciela Nina 07/04/2016 Injection Kenalog 10 MG NDC [id number] Satnosh Beverly MD 01/2015 Injection Kenalog 10 MG NDC 93007156688Yivmoqkvi Santosh Beverly MD Injection Kenalog 10 MG NDC [id number] Santosh Beverly MD Immunizations CPT Code Status Date Vaccine Lot # [id number] Given 08/25/2023 Influenza Vaccine High Do se 0.5ML Age 65 & > [id number] 47967 Given 08/25/2023 Sarscov2 Vaccin e 50 mcg/0.5 ML For Im Use 12 Yrs And Older [id number] 18085 Given 08/24/2022 Moderna Sars-Co v-2 (Covid-19) Vaccine, BiValent Booster [id number] 36272 Given 08/24/2022 Influenza Vaccine High Do se 0.5ML Age 65 & > [id number] 55965 Given 11/27/2021 Pfizer Sars-Cov -2 (Cov-19) vacc 30mcg/0.3ML 12Y+ EMR Doc Only 32042 Given 08/21/2021 Influenza Vaccine High Do se 0.5ML Age 65 & > [id number] 49129 Given 02/27/2021 Pfizer Sars-Cov -2 (Cov-19) vacc 30mcg/0.3ML 12Y+ EMR Doc Only 08148 Given 02/06/2021 Pfizer Sars-Cov -2 (Cov-19) vacc 30mcg/0.3ML 12Y+ EMR Doc Only 99634 Given 08/13/2020 Influenza Vaccine High Do se 0.5ML Age 65 & > [id number] 37531 Given 10/19/2019 Influenza Vacci ne, Inactivated, Subunit, Adjuvanted, For [facility] [id number] 35332 Given 07/25/2018 Influenza Vac, Split, Preservative Free High Dose Age 65 & > [id number] 00916 Given 10/14/2017 Influenza Vac, Split, Preservative Free High Dose Age 65 & > [id number] 13751 Given 09/22/2016 Influenza Vac, Split, Preservative Free High Dose Age 65 & > [id number] 50512 Given 03/18/2016 Pneumococcal Conjugate-Pr evnar 13 [id number] 66571 Given 08/28/2015 Influenza Virus Vaccine, Quadrivalent, Im Use [id number] 25434 Given 09/13/2014 Influenza Virus Vaccine, Quadrivalent, Im Use [id number] 61911 Given 06/04/2014 Zostavax Vaccine 42167 Given 11/07/2013 Pneumococcal Vaccine/Pneu movax 23 [id number] 45041 Given 11/07/2013 Influenza Vac, Split 3 Yr s And Up 33305 Given 10/11/2012 Influenza Vac, Split 3 Yr s And Up [id number] 73552 Given 09/22/2011 Influenza Vac, Split 3 Yr s And Up [id number] 80732 Given 10/21/2010 Influenza Vac, Split 3 Yr s And Up [id number] 19092 Given 08/30/2008 Td (Tetanus & D iphtheria) Decavac or Tenivac Age 7 & > [id number] Vital Signs Date Vital Result Comment 03/03/2024 10:25am BP Systolic 128 mmHg BP Diastolic 70 mmHg Body Temperature 98.1 F Heart Rate 76 /min Respiratory Rate 16 /min Weight 156.00 lb Weight 70.762 kg Height 65.5 inches 5'5.50" BMI (Body Mass Index) 25.6 kg/m2 [place] Body Weight 125 lb 08/25/2023 10:32am BP Systolic 146 mmHg BP Diastolic 82 mmHg BP Systolic Recheck 136 mmHg BP Diastolic Recheck 68 mmHg Heart Rate 63 /min Respiratory Rate 16 /min Weight 159.00 lb Weight 72.122 kg Height 65.5 inches 5'5.50" BMI (Body Mass Index) 26.1 kg/m2 [place] Body Weight 125 lb Results Test Acquired Date Facility Test Result H/L Range N ote Comp. Met 02/23/2024 [facility] [address] [place] [address] [phone] Glucose 95 mg/dL 70-110 BUN 12 mg/dL [...] 2.0-3.4 GFR 74 ML/MIN/1.73SQM >60 Lipid 02/23/2024 [facility] [address] [place], [place] [id number] [phone] Cholesterol 180 mg/dL 0-200 2 Triglyceride 97 mg/dL 0-150 3 HDLD 56 mg/dL See Comment 4 Measured LDL 119 mg/dL 0-130 5 Calc VLDL 19.4 mg/dL See Comment 6 Chol/HDL 3.2 RATIO See Comment 7 Non-HDL 124 mg/dL See Comment 8 TSH With Reflex 02/23/2024 [facility] [address] [place], [place] [address] [phone] TSH (Reflex) 0.02 uIU/mL Low 0.50-6.00 Laboratory test finding 02/23/2024 [facility]. [address] [place], [place] [id number] [phone] FRT4 2.23 ng/dL High 0.75-1.54 1 CRITICAL RESULTS GUANAKO IFIED, FAXED, AND CALLED TO [facility] AT 3:52 ON 02/23/24 WK 2 CHOLESTEROL [...] LDL Target Procedures Date Code Description Status 03/03/2024 3078F PVRP Diastolic BP <80 mmHg C ompleted 03/03/2024 3074F PVRP Systolic BP <130 mmHg C ompleted 03/03/2024 1101F PT SCR Future Fall Risk, No Fall Or 1 W/Out Injury Completed 02/23/2024 00923 Venipuncture Routine Complet ed 10/04/2023 [id number] Bone Mineral Density Test Co mpleted 10/04/2023 [id number] Mammogram Completed Medical Devices Description No Information Available Encounters Type Date Location Provider Dx Diagnosis Office Visit 03/03/2024 10:30a Libertad Beverly MD J44.1 Chronic obstruc tive pulmonary disease w (acute) exacerbation I10 Essential (primary) hypertension E78.2 Mixed hyperlipidemia E89.0 Postprocedural hypot hyroidism K21.9 Gastro-esophageal re flux disease without esophagitis F17.210 Nicotine dependence, cigarettes, uncomplicated M81.0 Age-related osteopor osis w/o current pathological fracture Z79.51 custodial (current) use of inhaled steroids Z00.00 Encntr for general a dult medical exam w/o abnormal findings Assessments Date Code Description Provider 03/03/2024 J44.1 Chronic obstruct [place] pulmonary disease with (acute) exacerbat Santosh Beverly MD 03/03/2024 I10 Essential (primary) hyperten valdo Santosh Beverly MD 03/03/2024 E78.2 Mixed hyperlipidemia Santosh mcgrath MD 03/03/2024 E89.0 Postprocedural hypothyroidis cesar Beverly MD 03/03/2024 K21.9 Gastro-esophagea l reflux disease without esophagitis Santosh Beverly MD 03/03/2024 F17.210 Nicotine dependence, cigaret darrell, uncomplicated Santosh Beverly MD 03/03/2024 M81.0 Age-related oste oporosis without current pathological fracture Santosh Beverly MD 03/03/2024 Z79.51 custodial (current) use of i nhaled steroids Santosh Beverly MD 03/03/2024 Z00.00 Encounter for ge neral adult medical examination without abnormal findings Santosh Beverly MD 02/23/2024 E78.2 Mixed hyperlipidemia Santosh mcgrath MD 02/23/2024 E78.2 [facility] 02/23/2024 E89.0 Postprocedural hypothyroidis cesar Beverly MD 02/23/2024 E89.0 Postprocedural hypothyroidis cesar Maurer Nurse Plan of Treatment Future Appointment(s):* 09/15/2024 11:00 am - Santosh Beverly MD at [facility] * 09/08/2024 10:30 am - [facility] Nurse at [facility] 03/03/2024 - Santosh Beverly MD* J44.1 Chronic obstructive pulmonary disease with (acute) exacerbat* New Medication:* Doxycycline Monohydrate 100 mg - 1 by mouth twice a day x 10 days * Prednisone 20 mg - 3 tabs daily x 5 days, then 2 tabs daily x5 days, then 1 tab daily x 5 days, then stop. * Comments:* 1. + acute exacerbation 2. rx for doxycycline 3. rx for prednisone with taper 4. call back instructions reviewed 5. f/u prn * I10 Essential (primary) hypertension* Comments:* 1. BP well controlled today 2. cont with metoprolol and HCTZ 3. f/u 6 months * E78.2 Mixed hyperlipidemia* New Labs:* Comp. Met, Scheduled: 09/08/24 * Lipid, Scheduled: 09/08/24 * Comments:* 1. FLP well controlled 2. cont to monitor 3. f/u 6 months * Follow up:* 6 months with labs prior * E89.0 Postprocedural hypothyroidism* New Labs:* TSH With Reflex, Scheduled: 09/08/24 * Comments:* 1. TSH elevated and FT4 low but pt is acutely ill 2. recheck labs at next visit 3. f/u 6 months * K21.9 Gastro-esophageal reflux disease without esophagitis* Comments:* 1. sx well controlled 2. cont esomeprazole 3. f/u 6 months * F17.210 Nicotine dependence, cigarettes, uncomplicated* Comments:* 1. no interest in quitting 2. f/u 6 months * M81.0 Age-related osteoporosis without current pathological fracture* New Medication:* Alendronate Sodium 70 mg - take 1 tablet once per week * New Labs:* Vitamin D 25 (Oh), Scheduled: 09/08/24 * Comments:* 1. start alendronate and vit d 2. work on wt bearing exercise 3. pt refuses to take calcium (worried about kidney issues) 4. f/u 6 months * Z79.51 [employer] (current) use of inhaled steroids * Z00.00 Encounter for general adult medical examination without abnormal findings* Comments:* 1. well adult female 2. labs reviewed 3. DEXA utd 4. mammo utd 5. imm utd 6. f/u 1 yr * All* Follow up:* please help pt sched mammo for after 10/05 Functional Status Description No Information Available Mental Status Description No Information Available Referrals Description No Information Available
--- OUTSIDE RECORDS SUMMARY | 2024-03-18 23:31 | External Medical Summary | Continuity of Care Document ---
Author Name Unknown Organization [facility] Address [address] [place] [address] Phone [phone] Care Team Providers Care Auger Machine Offbearer Name Role Phone [facility] rts Medicine Care Team Information Yardage Control Clerk [phone] Barry Jeong MD Care Team Information Receiv er [phone] [facility] Care Team Information Yardage Control Clerk [phone] Santosh Beverly MD Care Team Information Yardage Control Clerk [phone] [facility] - Dermatology Care Team Information Yardage Control Clerk [phone] Ines Barton Care Team Information Yardage Control Clerk [phone] [facility] - Dermatology Care Team Information Yardage Control Clerk Unavailable Problems Active Problems Provider Date Postoperative hypothyroidism Santosh Beverly MD On set: 08/30/2008 Essential hypertension Santosh Beverly MD Onset: 1 11/11/2014 Mixed hyperlipidemia Santosh Beverly MD Onset: 10/2015 History of malignant neoplasm of thyroid Santosh mcgrath MD Onset: 09/11/2015 Note: around age 55-60 Gastroesophageal reflux disease aSntosh Beverly MD Onset: 08/30/2008 Tobacco dependence, continuous [...] Drug Use Denies Drug Use Exercise Type/Frequency GolCardioKinetix Allergies and adverse reactions Active Allergies Criticality Reaction | Severity Comments Date NKDA Unable to assess criticality 12/23/2007 Latex Unable to assess criticality 05/24/2023 Medications Active Medications SIG Qnty Indications Order ing Provider Date Diphenhydramine YJY28ci Capsules take one tab daily prn 5caps Santosh Beverly MD 02/04/2024 Metoprolol Succinate ER50mg Tablets ER 24HR Take 1 Tablet By Mouth Every Day 90tabs I10 Santosh Beverly MD 09/11/2021 Trelegy Ckplqbr786-69.5-25mcg/A ct Aerosol Use 1 puff By Mouth Every Day 60units J44.9 Santosh Beverly MD 12/14/2017 Mxnwmrskpomtegirvcn60yh Tablets Take 1 Tablet By Mouth Every Day 90tabs I10 Santosh Beverly MD 12/14/[address] 1 by mouth every day 90caps K21.9 Santosh Beverly MD 09/13/2014 Levothyroxine Khgxkm042hen Tablets Take 1 Tablet By Mouth Every Day 90tabs E89.0 Santosh Beverly MD 08/30/2008 Goultauds08vp Capsules take one tablet by mouth every night at bedtime as needed Unknown Flonase Allergy Pwifqo88ytx/Act Suspension 2 sprays each nostril daily Unknown Medications Administered in Office Medication SIG Qnty Indications Ordering Provider Date Injection Kenalog 10 MG NDC [id number] Graciela Nina 07/04/2016 Injection Kenalog 10 MG NDC 81044235829Omfeyjybz Santosh Beverly MD 01/2015 Injection Kenalog 10 MG NDC 96185097813Bcwqyxamo Santosh Beverly MD Injection Kenalog 10 MG NDC 56406950108Rropeclxw Santosh Beverly MD Immunizations CPT Code Status Date Vaccine Lot # [id number] Given 08/25/2023 Influenza Vaccine High Do se 0.5ML Age 65 & > [id number] 18920 Given 08/25/2023 Sarscov2 Vaccin e 50 mcg/0.5 ML For Im Use 12 Yrs And Older [id number] 40070 Given 08/24/2022 Moderna Sars-Co v-2 (Covid-19) Vaccine, BiValent Booster [id number] 92010 Given 08/24/2022 Influenza Vaccine High Do se 0.5ML Age 65 & > [id number] 49268 Given 11/27/2021 Pfizer Sars-Cov -2 (Cov-19) vacc 30mcg/0.3ML 12Y+ EMR Doc Only 71307 Given 08/21/2021 Influenza Vaccine High Do se 0.5ML Age 65 & > [id number] 29905 Given 02/27/2021 Pfizer Sars-Cov -2 (Cov-19) vacc 30mcg/0.3ML 12Y+ EMR Doc Only 00310 Given 02/06/2021 Pfizer Sars-Cov -2 (Cov-19) vacc 30mcg/0.3ML 12Y+ EMR Doc Only 34708 Given 08/13/2020 Influenza Vaccine High Do se 0.5ML Age 65 & > [id number] 52027 Given 10/19/2019 Influenza Vacci ne, Inactivated, Subunit, Adjuvanted, For [facility] [id number] 86867 Given 07/25/2018 Influenza Vac, Split, Preservative Free High Dose Age 65 & > [id number] 04217 Given 10/14/2017 Influenza Vac, Split, Preservative Free High Dose Age 65 & > [id number] 98347 Given 09/22/2016 Influenza Vac, Split, Preservative Free High Dose Age 65 & > [id number] 87752 Given 03/18/2016 Pneumococcal Conjugate-Pr evnar 13 [id number] 86378 Given 08/28/2015 Influenza Virus Vaccine, Quadrivalent, Im Use [id number] 64430 Given 09/13/2014 Influenza Virus Vaccine, Quadrivalent, Im Use [id number] 32471 Given 06/04/2014 Zostavax Vaccine 75847 Given 11/07/2013 Pneumococcal Vaccine/Pneu movax 23 [id number] 27585 Given 11/07/2013 Influenza Vac, Split 3 Yr s And Up 37934 Given 10/11/2012 Influenza Vac, Split 3 Yr s And Up [id number] 80162 Given 09/22/2011 Influenza Vac, Split 3 Yr s And Up [id number] 24207 Given 10/21/2010 Influenza Vac, Split 3 Yr s And Up [id number] 95735 Given 08/30/2008 Td (Tetanus & D iphtheria) Decavac or Tenivac Age 7 & > [id number] Vital Signs Date Vital Result Comment 08/25/2023 10:32am BP Systolic 146 mmHg BP Diastolic 82 mmHg BP Systolic Recheck 136 mmHg BP Diastolic Recheck 68 mmHg Heart Rate 63 /min Respiratory Rate 16 /min Weight 159.00 lb Weight 72.122 kg Height 65.5 inches 5'5.50" BMI (Body Mass Index) 26.1 kg/m2 [place] Body Weight 125 lb 07/08/2023 10:53am BP Systolic 146 mmHg BP Diastolic 94 mmHg Body Temperature 97.2 F Heart Rate 71 /min Respiratory Rate 14 /min Weight 159.00 lb Weight 72.122 kg Height 65.5 inches 5'5.50" BMI (Body Mass Index) 26.1 kg/m2 O2 % BldC Oximetry 96 % [place] Body Weight 125 lb Results Test Acquired Date Facility Test Result H/L Range N ote Comp. Met 02/23/2024 [facility]. [address] [place] [address] [phone] Glucose 95 mg/dL 70-110 BUN 12 mg/dL [...] 2.0-3.4 GFR 74 ML/MIN/1.73SQM >60 Lipid 02/23/2024 [facility]. [address] [place] [address] [phone] Cholesterol 180 mg/dL 0-200 2 Triglyceride 97 mg/dL 0-150 3 HDLD 56 mg/dL See Comment 4 Measured LDL 119 mg/dL 0-130 5 Calc VLDL 19.4 mg/dL See Comment 6 Chol/HDL 3.2 RATIO See Comment 7 Non-HDL 124 mg/dL See Comment 8 TSH With Reflex 02/23/2024 [facility] [address] [place] [address] [phone] TSH (Reflex) 0.02 uIU/mL Low 0.50-6.00 Laboratory test finding 02/23/2024 [facility] [address] [place] [address] [phone] FRT4 2.23 ng/dL High 0.75-1.54 1 CRITICAL RESULTS GUANAKO IFIED, FAXED, AND CALLED TO [facility] AT 3:52 ON 02/23/24 WK 2 [...] Target Procedures Date Code Description Status 02/23/2024 62236 Venipuncture Routine Complet ed 10/04/2023 [id number] Bone Mineral Density Test Co mpleted 10/04/2023 [id number] Mammogram Completed Medical Devices Description No Information Available Encounters Description No Information Available Assessments Date Code Description Provider 02/23/2024 E78.2 Mixed hyperlipidemia Sheila contreras Nurse 02/23/2024 E89.0 Postprocedural hypothyroidis cesar Maurer Nurse Plan of Treatment Future Appointment(s):* 03/03/2024 10:30 am - Santosh Beverly MD at [facility] 08/25/2023 - Santosh Beverly MD* J44.9 Chronic [...]
--- OUTSIDE RECORDS SUMMARY | 2024-03-18 23:31 | External Medical Summary | Continuity of Care Document ---
Author Name Unknown Organization [place] Address [address] [place] [address] Phone [phone] Care Team Providers Care Car Dryer Name Role Phone [facility] rts Medicine Care Team Information Director Of Planning [phone] Barry Jeong MD Care Team Information Receiv er [phone] [facility] Care Team Information Director Of Planning [phone] Santosh Beverly MD Care Team Information Director Of Planning [phone] [facility] - Dermatology Care Team Information Director Of Planning [phone] Ines Barton Care Team Information Director Of Planning [phone] D[facility] - Dermatology Care Team Information Director Of Planning Unavailable Problems Active Problems Provider Date Postoperative [...] Qnty Indications Order ing Provider Date Alendronate Fliren02bd Tablets take 1 tablet once per week 4tabs M81.0 Santosh Beverly MD 03/03/2024 Doxycycline Pawtfruovrr406jc Capsules 1 by mouth twice a day x 10 days 20caps J44.1 Santosh Beverly MD 03/03/2024 - 03/13/2024 Wmqouzoaic52pc Tablets 3 tabs daily x 5 days, then 2 tabs daily x5 days, then 1 tab daily x 5 days, then stop. 30tabs J44.1 Santosh Beverly MD 03/03/2024 - 03/18/2024 Diphenhydramine VMU27fu Capsules take one tab daily prn 5caps Santosh Beverly MD 02/04/2024 Metoprolol Succinate ER50mg Tablets ER 24HR Take 1 Tablet By Mouth Every Day 90tabs I10 Santosh Beverly MD 09/11/2021 Trelegy Utgttdz567-43.5-25mcg/A ct Aerosol Use 1 puff By Mouth Every Day 60units J44.9 Santosh Beverly MD 12/14/2017 Ineojqwqflsywlmmgiv74rt Tablets Take 1 Tablet By Mouth Every Day 90tabs I10 Santosh Beverly MD 12/14/[address] 1 by mouth every day 90caps K21.9 Santosh Beverly MD 09/13/2014 Levothyroxine Vfiash716kwa Tablets Take 1 Tablet By Mouth Every Day 90tabs E89.0 Santosh Beverly MD 08/30/2008 Zjkwkblwh97fe Capsules take one tablet by mouth every night at bedtime as needed Unknown Flonase Allergy Gmeuxy41zdu/Act Suspension 2 sprays each nostril daily Unknown Medications Administered in Office Medication SIG Qnty Indications Ordering Provider Date Injection Kenalog 10 MG NDC [id number] Graciela Nina 07/04/2016 Injection Kenalog 10 MG NDC [id number] Santosh Beverly MD 01/2015 Injection Kenalog 10 MG NDC [id number] Santosh Beverly MD Injection Kenalog 10 MG NDC [id number] Santosh Beverly MD Immunizations CPT Code Status Date Vaccine Lot # [id number] Given 08/25/2023 Influenza Vaccine High Do se 0.5ML Age 65 & > [id number] 42566 Given 08/25/2023 Sarscov2 Vaccin e 50 mcg/0.5 ML For Im Use 12 Yrs And Older [id number] 23724 Given 08/24/2022 Moderna Sars-Co v-2 (Covid-19) Vaccine, BiValent Booster 12y+ [id number] 48678 Given 08/24/2022 Influenza Vaccine High Do se 0.5ML Age 65 & > [id number] 57276 Given 11/27/2021 Pfizer Sars-Cov -2 (Cov-19) vacc 30mcg/0.3ML 12Y+ E[place] Doc Only [address] Given 08/21/2021 Influenza Vaccine High Do se 0.5ML Age 65 & > 206996 99699 Given 02/27/2021 Pfizer Sars-Cov -2 (Cov-19) vacc 30mcg/0.3ML 12Y+ EMR Doc Only 66160 Given 02/06/2021 Pfizer Sars-Cov -2 (Cov-19) vacc 30mcg/0.3ML 12Y+ EMR Doc Only 78285 Given 08/13/2020 Influenza Vaccine High Do se 0.5ML Age 65 & > [id number] 06726 Given 10/19/2019 Influenza Vacci ne, Inactivated, Subunit, Adjuvanted, For [facility] [id number] 81327 Given 07/25/2018 Influenza Vac, Split, Preservative Free High Dose Age 65 & > [id number] 16333 Given 10/14/2017 Influenza Vac, Split, Preservative Free High Dose Age 65 & > [id number] 46327 Given 09/22/2016 Influenza Vac, Split, Preservative Free High Dose Age 65 & > [id number] 20049 Given 03/18/2016 Pneumococcal Conjugate-Pr evnar 13 [id number] 22447 Given 08/28/2015 Influenza Virus Vaccine, Quadrivalent, Im Use [id number] 95192 Given 09/13/2014 Influenza Virus Vaccine, Quadrivalent, Im Use [id number] 95176 Given 06/04/2014 Zostavax Vaccine 16045 Given 11/07/2013 Pneumococcal Vaccine/Pneu movax 23 [id number] 16749 Given 11/07/2013 Influenza Vac, Split 3 Yr s And Up 83087 Given 10/11/2012 Influenza Vac, Split 3 Yr s And Up [id number] 12455 Given 09/22/2011 Influenza Vac, Split 3 Yr s And Up [id number] 91963 Given 10/21/2010 Influenza Vac, Split 3 Yr s And Up [id number] 49376 Given 08/30/2008 Td (Tetanus & D iphtheria) Decavac or Tenivac Age 7 & > [id number] Vital Signs Date Vital Result Comment 03/03/2024 10:25am BP Systolic 128 mmHg BP Diastolic 70 mmHg Body Temperature 98.1 F Heart Rate 76 /min Respiratory Rate 16 /min Weight 156.00 lb Weight 70.762 kg Height 65.5 inches 5'5.50" BMI (Body Mass Index) 25.6 kg/m2 [place] Body Weight 125 lb 08/25/2023 10:32am BP Systolic 146 mmHg BP Diastolic 82 mmHg BP Systolic Recheck 136 mmHg BP Diastolic Recheck 68 mmHg Heart Rate 63 /min Respiratory Rate 16 /min Weight 159.00 lb Weight 72.122 kg Height 65.5 inches 5'5.50" BMI (Body Mass Index) 26.1 kg/m2 [place] Body Weight 125 lb Results Test Acquired Date Facility Test Result H/L Range N ote Comp. Met 02/23/2024 [facility]. [address] [place] [address] [phone] Glucose 95 mg/dL 70-110 BUN 12 mg/dL [...] 2.0-3.4 GFR 74 ML/MIN/1.73SQM >60 Lipid 02/23/2024 [facility]. [address] [place], [place] [id number] [phone] Cholesterol 180 mg/dL 0-200 2 Triglyceride 97 mg/dL 0-150 3 HDLD 56 mg/dL See Comment 4 Measured LDL 119 mg/dL 0-130 5 Calc VLDL 19.4 mg/dL See Comment 6 Chol/HDL 3.2 RATIO See Comment 7 Non-HDL 124 mg/dL See Comment 8 TSH With Reflex 02/23/2024 [facility]. [address] [place], [place] [id number] [phone] TSH (Reflex) 0.02 uIU/mL Low 0.50-6.00 Laboratory test finding 02/23/2024 [facility]. 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 K21.9 Gastro-esophageal re flux disease without esophagitis F17.210 Nicotine dependence, cigarettes, uncomplicated M81.0 Age-related osteopor osis w/o current pathological fracture Z79.51 [facility] (current) use of inhaled steroids Z00.00 Encntr [...] pathological fracture Santosh Beverly MD 03/03/2024 Z79.51 [facility] (current) use of i nhaled steroids Santosh Beverly MD 03/03/2024 Z00.00 Encounter for ge neral adult medical examination without abnormal findings Santosh Beverly MD 02/23/2024 E78.2 Mixed hyperlipidemia Santosh mcgrath MD 02/23/2024 E78.2 Mixed hyperlipidemia [facility] Nurse 02/23/2024 E89.0 Postprocedural hypothyroidis cesar Beverly MD 02/23/2024 E89.0 Postprocedural hypothyroidis cesar [facility] Nurse Plan of Treatment Future Appointment(s):* 09/15/2024 11:00 am - Santosh Beverly MD at [facility] * 09/08/2024 10:30 am - [facility] Nurse at [facility] 03/03/2024 - Santosh Beverly MD* J44.1 Chronic [...] issues) 4. 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
--- OUTSIDE RECORDS SUMMARY | 2024-03-18 23:31 | External Medical Summary | Continuity of Care Document ---
Author Name Unknown Organization [facility] Address [address] [place] [address] Phone [phone] Care Team Providers Care Chief Mechanical Officer Name Role Phone [facility] rts Medicine Care Team Information Supervisor [place] [employer] [phone] Barry Jeong MD Care Team Information Receiv er [phone] [facility] Care Team Information Supervisor [place] [phone] Santosh Beverly MD Care Team Information Supervisor [place] [phone] [facility] - Dermatology Care Team Information Supervisor [place] [phone] Ines Barton Care Team Information Supervisor [place] + [phone] [facility] - Dermatology Care Team Information Supervisor [place] Unavailable Problems Active Problems Provider Date Postoperative [...] Qnty Indications Order ing Provider Date Alendronate Ylvsco65uq Tablets take 1 tablet once per week 4tabs M81.0 Santosh Beverly MD 03/03/2024 Doxycycline Bokppffxcbb275dj Capsules 1 by mouth twice a day x 10 days 20caps J44.1 Santosh Beverly MD 03/03/2024 - 03/13/2024 Vykftwcrvy83ui Tablets 3 tabs daily x 5 days, then 2 tabs daily x5 days, then 1 tab daily x 5 days, then stop. 30tabs J44.1 Santosh Beverly MD 03/03/2024 - 03/18/2024 Diphenhydramine AYO84en Capsules take one tab daily prn 5caps Santosh Beverly MD 02/04/2024 Metoprolol Succinate ER50mg Tablets ER 24HR Take 1 Tablet By Mouth Every Day 90tabs I10 Santosh Beverly MD 09/11/2021 Trelegy Ulmixaf991-09.5-25mcg/A ct Aerosol Use 1 puff By Mouth Every Day 60units J44.9 Santosh Beverly MD 12/14/2017 Tnyumxszxvinacviipw62ql Tablets Take 1 Tablet By Mouth Every Day 90tabs I10 Santosh Beverly MD 12/14/[address] 1 by mouth every day 90caps K21.9 Santosh Beverly MD 09/13/2014 Levothyroxine Uipkzw250jfv Tablets Take 1 Tablet By Mouth Every Day 90tabs E89.0 Santosh Beverly MD 08/30/2008 Lcelbfhoh59al Capsules take one tablet by mouth every night at bedtime as needed Unknown Flonase Allergy Jwvzqr38kws/Act Suspension 2 sprays each nostril daily Unknown Medications Administered in Office Medication SIG Qnty Indications Ordering Provider Date Injection Kenalog 10 MG NDC [id number] Graciela Nina 07/04/2016 Injection Kenalog 10 MG NDC 25973353107Josufjwct Santosh Beverly MD 01/2015 Injection Kenalog 10 MG NDC 81832826868Fecjupcue Santosh Beverly MD Injection Kenalog 10 MG NDC 44869833692Elujqgtnf Santosh Beverly MD Immunizations CPT Code Status Date Vaccine Lot # [id number] Given 08/25/2023 Influenza Vaccine High Do se 0.5ML Age 65 & > [id number] 89417 Given 08/25/2023 Sarscov2 Vaccin e 50 mcg/0.5 ML For Im Use 12 Yrs And Older [id number] 40340 Given 08/24/2022 Moderna Sars-Co v-2 (Covid-19) Vaccine, BiValent Booster 12y+ [id number] 76303 Given 08/24/2022 Influenza Vaccine High Do se 0.5ML Age 65 & > [id number] 06032 Given 11/27/2021 Pfizer Sars-Cov -2 (Cov-19) vacc 30mcg/0.3ML 12Y+ EMR Doc Only 66770 Given 08/21/2021 Influenza Vaccine High Do se 0.5ML Age 65 & > 191394 51318 Given 02/27/2021 Pfizer Sars-Cov -2 (Cov-19) vacc 30mcg/0.3ML 12Y+ EMR Doc Only 93426 Given 02/06/2021 Pfizer Sars-Cov -2 (Cov-19) vacc 30mcg/0.3ML 12Y+ EMR Doc Only 70584 Given 08/13/2020 Influenza Vaccine High Do se 0.5ML Age 65 & > 164633 84270 Given 10/19/2019 Influenza Vacci ne, Inactivated, Subunit, Adjuvanted, For [facility] [id number] 21775 Given 07/25/2018 Influenza Vac, Split, Preservative Free High Dose Age 65 & > [id number] 46127 Given 10/14/2017 Influenza Vac, Split, Preservative Free High Dose Age 65 & > [id number] 30749 Given 09/22/2016 Influenza Vac, Split, Preservative Free High Dose Age 65 & > [id number] 47592 Given 03/18/2016 Pneumococcal Conjugate-Pr evnar 13 [id number] 94068 Given 08/28/2015 Influenza Virus Vaccine, Quadrivalent, Im Use [id number] 93826 Given 09/13/2014 Influenza Virus Vaccine, Quadrivalent, Im Use [id number] 69875 Given 06/04/2014 Zostavax Vaccine 27466 Given 11/07/2013 Pneumococcal Vaccine/Pneu movax 23 [id number] 10416 Given 11/07/2013 Influenza Vac, Split 3 Yr s And Up 27110 Given 10/11/2012 Influenza Vac, Split 3 Yr s And Up [id number] 78735 Given 09/22/2011 Influenza Vac, Split 3 Yr s And Up [id number] 07066 Given 10/21/2010 Influenza Vac, Split 3 Yr s And Up [id number] 19066 Given 08/30/2008 Td (Tetanus & D iphtheria) Decavac or Tenivac Age 7 & > [id number] Vital Signs Date Vital Result Comment 03/03/2024 10:25am BP Systolic 128 mmHg BP Diastolic 70 mmHg Body Temperature 98.1 F Heart Rate 76 /min Respiratory Rate 16 /min Weight 156.00 lb Weight 70.762 kg Height 65.5 inches 5'5.50" BMI (Body Mass Index) 25.6 kg/m2 [place] Body Weight 125 lb 08/25/2023 10:32am BP Systolic 146 mmHg BP Diastolic 82 mmHg BP Systolic Recheck 136 mmHg BP Diastolic Recheck 68 mmHg Heart Rate 63 /min Respiratory Rate 16 /min Weight 159.00 lb Weight 72.122 kg Height 65.5 inches 5'5.50" BMI (Body Mass Index) 26.1 kg/m2 [place] Body Weight 125 lb Results Test Acquired Date Facility Test Result H/L Range N ote Comp. Met 02/23/2024 [facility]. [address] [place] [address] [phone] Glucose 95 mg/dL 70-110 BUN 12 mg/dL [...] 2.0-3.4 GFR 74 ML/MIN/1.73SQM >60 Lipid 02/23/2024 [facility]. [address] [place], [place] [address] [phone] Cholesterol 180 mg/dL 0-200 2 Triglyceride 97 mg/dL 0-150 3 HDLD 56 mg/dL See Comment 4 Measured LDL 119 mg/dL 0-130 5 Calc VLDL 19.4 mg/dL See Comment 6 Chol/HDL 3.2 RATIO See Comment 7 Non-HDL 124 mg/dL See Comment 8 TSH With Reflex 02/23/2024 [facility]. [address] [place], [place] [address] [phone] TSH (Reflex) 0.02 uIU/mL Low 0.50-6.00 Laboratory test finding 02/23/2024 [facility]. 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 K21.9 Gastro-esophageal re flux disease without esophagitis F17.210 Nicotine dependence, cigarettes, uncomplicated M81.0 Age-related osteopor osis w/o current pathological fracture Z79.51 [facility] (current) use of inhaled steroids Z00.00 Encntr [...] pathological fracture Santosh Beverly MD 03/03/2024 Z79.51 [facility] (current) use of i nhaled steroids Santosh Beverly MD 03/03/2024 Z00.00 Encounter for ge neral adult medical examination without abnormal findings Santosh Beverly MD 02/23/2024 E78.2 Mixed hyperlipidemia Santosh mcgrath MD 02/23/2024 E78.2 [facility] 02/23/2024 E89.0 Postprocedural hypothyroidis cesar Beverly MD 02/23/2024 E89.0 Postprocedural hypothyroidis cesar [facility] Nurse Plan of Treatment Future Appointment(s):* 09/15/2024 11:00 am - Santosh Beverly MD at [facility] * 09/08/2024 10:30 am - [facility] Nurse at [facility] 03/03/2024 - Santosh Beverly MD* J44.1 Chronic [...] issues) 4. 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
--- OUTSIDE RECORDS SUMMARY | 2024-03-18 23:31 | External Medical Summary | Continuity of Care Document ---
Author Name Unknown Organization [facility] Address [address] [place] [address] Phone [phone] Care Team Providers Care Senior Pricing Analyst Name Role Phone [facility] rts Medicine Care Team Information Site Safety Manager [phone] Barry Jeong MD Care Team Information Receiv er [phone] [facility] Care Team Information Site Safety Manager [phone] Santosh Beverly MD Care Team Information Site Safety Manager [phone] [facility] - Dermatology Care Team Information Site Safety Manager [phone] Ines Barton Care Team Information Site Safety Manager [phone] [facility] - Dermatology Care Team Information Site Safety Manager Unavailable Problems Active Problems Provider Date Postoperative [...] Qnty Indications Order ing Provider Date Alendronate Hazfqd23as Tablets take 1 tablet once per week 4tabs M81.0 Santosh Beverly MD 03/03/2024 Doxycycline Vfkrpsagtte297pc Capsules 1 by mouth twice a day x 10 days 20caps J44.1 Santosh Beverly MD 03/03/2024 - 03/13/2024 Baiteeetur15sr Tablets 3 tabs daily x 5 days, then 2 tabs daily x5 days, then 1 tab daily x 5 days, then stop. 30tabs J44.1 Santosh Beverly MD 03/03/2024 - 03/18/2024 Diphenhydramine SML77xk Capsules take one tab daily prn 5caps Santosh Beverly MD 02/04/2024 Metoprolol Succinate ER50mg Tablets ER 24HR Take 1 Tablet By Mouth Every Day 90tabs I10 Santosh Beverly MD 09/11/2021 Trelegy Qrwsmqd854-18.5-25mcg/A ct Aerosol Use 1 puff By Mouth Every Day 60units J44.9 Santosh Beverly MD 12/14/2017 Xurdxbudcknrhjqdirh89nt Tablets Take 1 Tablet By Mouth Every Day 90tabs I10 Santosh Beverly MD 12/14/[address] 1 by mouth every day 90caps K21.9 Santosh Beverly MD 09/13/2014 Levothyroxine Xqeqej490gyx Tablets Take 1 Tablet By Mouth Every Day 90tabs E89.0 Santosh Beverly MD 08/30/2008 Kuffjasij48es Capsules take one tablet by mouth every night at bedtime as needed Unknown Flonase Allergy Azndtr88zmn/Act Suspension 2 sprays each nostril daily Unknown Medications Administered in Office Medication SIG Qnty Indications Ordering Provider Date Injection Kenalog 10 MG NDC [id number] Graciela Nina 07/04/2016 Injection Kenalog 10 MG NDC 80500723390Xzfdmlfcn Santosh Beverly MD 01/2015 Injection Kenalog 10 MG NDC 79228707131Xidmnmbvu Santosh Beverly MD Injection Kenalog 10 MG NDC 10210244977Vtwodsuwd Santosh Beverly MD Immunizations CPT Code Status Date Vaccine Lot # [id number] Given 08/25/2023 Influenza Vaccine High Do se 0.5ML Age 65 & > [id number] 21035 Given 08/25/2023 Sarscov2 Vaccin e 50 mcg/0.5 ML For Im Use 12 Yrs And Older [id number] 17857 Given 08/24/2022 Moderna Sars-Co v-2 (Covid-19) Vaccine, BiValent Booster 12y+ [id number] 99275 Given 08/24/2022 Influenza Vaccine High Do se 0.5ML Age 65 & > [id number] 58861 Given 11/27/2021 Pfizer Sars-Cov -2 (Cov-19) vacc 30mcg/0.3ML 12Y+ EMR Doc Only 39134 Given 08/21/2021 Influenza Vaccine High Do se 0.5ML Age 65 & > [id number] 08615 Given 02/27/2021 Pfizer Sars-Cov -2 (Cov-19) vacc 30mcg/0.3ML 12Y+ EMR Doc Only 53883 Given 02/06/2021 Pfizer Sars-Cov -2 (Cov-19) vacc 30mcg/0.3ML 12Y+ EMR Doc Only 74016 Given 08/13/2020 Influenza Vaccine High Do se 0.5ML Age 65 & > [id number] 79903 Given 10/19/2019 Influenza Vacci ne, Inactivated, Subunit, Adjuvanted, For [facility] [id number] 92658 Given 07/25/2018 Influenza Vac, Split, Preservative Free High Dose Age 65 & > [id number] 74609 Given 10/14/2017 Influenza Vac, Split, Preservative Free High Dose Age 65 & > [id number] 98124 Given 09/22/2016 Influenza Vac, Split, Preservative Free High Dose Age 65 & > [id number] 22035 Given 03/18/2016 Pneumococcal Conjugate-Pr evnar 13 [id number] 82560 Given 08/28/2015 Influenza Virus Vaccine, Quadrivalent, Im Use [id number] 26731 Given 09/13/2014 Influenza Virus Vaccine, Quadrivalent, Im Use [id number] 01023 Given 06/04/2014 Zostavax Vaccine 35124 Given 11/07/2013 Pneumococcal Vaccine/Pneu movax 23 [id number] 95859 Given 11/07/2013 Influenza Vac, Split 3 Yr s And Up 41447 Given 10/11/2012 Influenza Vac, Split 3 Yr s And Up [id number] 91903 Given 09/22/2011 Influenza Vac, Split 3 Yr s And Up [id number] 56263 Given 10/21/2010 Influenza Vac, Split 3 Yr s And Up [id number] 32731 Given 08/30/2008 Td (Tetanus & D iphtheria) Decavac or Tenivac Age 7 & > [id number] Vital Signs Date Vital Result Comment 03/03/2024 10:25am BP Systolic 128 mmHg BP Diastolic 70 mmHg Body Temperature 98.1 F Heart Rate 76 /min Respiratory Rate 16 /min Weight 156.00 lb Weight 70.762 kg Height 65.5 inches 5'5.50" BMI (Body Mass Index) 25.6 kg/m2 [place] Body Weight 125 lb 08/25/2023 10:32am BP Systolic 146 mmHg BP Diastolic 82 mmHg BP Systolic Recheck 136 mmHg BP Diastolic Recheck 68 mmHg Heart Rate 63 /min Respiratory Rate 16 /min Weight 159.00 lb Weight 72.122 kg Height 65.5 inches 5'5.50" BMI (Body Mass Index) 26.1 kg/m2 [place] Body Weight 125 lb Results Test Acquired Date Facility Test Result H/L Range N ote Comp. Met 02/23/2024 [facility]. [address] [place] [address] [phone] Glucose 95 mg/dL 70-110 BUN 12 mg/dL [...] 2.0-3.4 GFR 74 ML/MIN/1.73SQM >60 Lipid 02/23/2024 [facility]. [address] [place], [place] [address] [phone] Cholesterol 180 mg/dL 0-200 2 Triglyceride 97 mg/dL 0-150 3 HDLD 56 mg/dL See Comment 4 Measured LDL 119 mg/dL 0-130 5 Calc VLDL 19.4 mg/dL See Comment 6 Chol/HDL 3.2 RATIO See Comment 7 Non-HDL 124 mg/dL See Comment 8 TSH With Reflex 02/23/2024 [facility]. [address] [place], [place] [address] [phone] TSH (Reflex) 0.02 uIU/mL Low 0.50-6.00 Laboratory test finding 02/23/2024 [facility]. 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 K21.9 Gastro-esophageal re flux disease without esophagitis F17.210 Nicotine dependence, cigarettes, uncomplicated M81.0 Age-related osteopor osis w/o current pathological fracture 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 Z00.00 Encntr [...] pathological fracture Santosh Beverly MD 03/03/2024 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 (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] issues) 4. 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
--- OUTSIDE RECORDS SUMMARY | 2024-03-18 23:32 | External Medical Summary | Continuity of Care Document ---
Author Name Unknown Organization Family Practice [facility] Address [address] [place] [address] Phone [phone] Care Team Providers Care Greenhouse Staff Name Role Phone [facility] rts Medicine Care Team Information Shop Mechanic Helper [phone] Barry Jeong MD Care Team Information Receiv er [phone] [facility] Care Team Information Shop Mechanic Helper + [phone] Santosh Beverly MD Care Team Information Shop Mechanic Helper [phone] [facility] - Dermatology Care Team Information Shop Mechanic Helper [phone] Ines Barton Care Team Information Shop Mechanic Helper [phone] Dermatology - Dermatology Care Team Information Shop Mechanic Helper Unavailable Problems Active Problems Provider Date Postoperative [...] Drug Use Denies Drug Use Exercise Type/Frequency GolDoublePositive Allergies and adverse reactions Active Allergies Criticality Reaction | Severity Comments Date NKDA Unable to assess criticality 12/23/2007 Latex Unable to assess criticality 05/24/2023 Medications Active Medications SIG Qnty Indications Order ing Provider Date Diphenhydramine IWU20kj Capsules take one tab daily prn 5caps Santosh Beverly MD 02/04/2024 Metoprolol Succinate ER50mg Tablets ER 24HR Take 1 Tablet By Mouth Every Day 90tabs I10 Santosh Beverly MD 09/11/2021 Trelegy Ikchkfm460-26.5-25mcg/A ct Aerosol Use 1 puff By Mouth Every Day 60units J44.9 Santosh Beverly MD 12/14/2017 Psazocafgbvyrlatotu53xy Tablets Take 1 Tablet By Mouth Every Day 90tabs I10 Santosh Beverly MD 12/14/[address] 1 by mouth every day 90caps K21.9 Santosh Beverly MD 09/13/2014 Levothyroxine Ymaunl521zhg Tablets Take 1 Tablet By Mouth Every Day 90tabs E89.0 Santosh Beverly MD 08/30/2008 Dunvhwvlp79zd Capsules take one tablet by mouth every night at bedtime as needed Unknown Flonase Allergy Xzidmk14vqm/Act Suspension 2 sprays each nostril daily Unknown Medications Administered in Office Medication SIG Qnty Indications Ordering Provider Date Injection Kenalog 10 MG NDC [id number] Graciela Nina 07/04/2016 Injection Kenalog 10 MG NDC [id number] Santosh Beverly MD 01/2015 Injection Kenalog 10 MG NDC [id number] Santosh Beverly MD Injection Kenalog 10 MG NDC [id number] Santosh Beverly MD Immunizations CPT Code Status Date Vaccine Lot # [id number] Given 08/25/2023 Influenza Vaccine High Do se 0.5ML Age 65 & > [id number] 99952 Given 08/25/2023 Sarscov2 Vaccin e 50 mcg/0.5 ML For Im Use 12 Yrs And Older [id number] 62792 Given 08/24/2022 Moderna Sars-Co v-2 (Covid-19) Vaccine, BiValent Booster [id number] 49776 Given 08/24/2022 Influenza Vaccine High Do se 0.5ML Age 65 & > [id number] 46132 Given 11/27/2021 Pfizer Sars-Cov -2 (Cov-19) vacc 30mcg/0.3ML 12Y+ EMR Doc Only 02354 Given 08/21/2021 Influenza Vaccine High Do se 0.5ML Age 65 & > [id number] 08785 Given 02/27/2021 Pfizer Sars-Cov -2 (Cov-19) vacc 30mcg/0.3ML 12Y+ EMR Doc Only 80102 Given 02/06/2021 Pfizer Sars-Cov -2 (Cov-19) vacc 30mcg/0.3ML 12Y+ EMR Doc Only [id number] Given 08/13/2020 Influenza Vaccine High Do se 0.5ML Age 65 & > [id number] 87793 Given 10/19/2019 Influenza Vacci ne, Inactivated, Subunit, Adjuvanted, For [facility] [id number] 34762 Given 07/25/2018 Influenza Vac, Split, Preservative Free High Dose Age 65 & > [id number] 92285 Given 10/14/2017 Influenza Vac, Split, Preservative Free High Dose Age 65 & > [id number] 81651 Given 09/22/2016 Influenza Vac, Split, Preservative Free High Dose Age 65 & > [id number] 26424 Given 03/18/2016 Pneumococcal Conjugate-Pr evnar 13 [id number] 23439 Given 08/28/2015 Influenza Virus Vaccine, Quadrivalent, Im Use [id number] 51839 Given 09/13/2014 Influenza Virus Vaccine, Quadrivalent, Im Use [id number] 44912 Given 06/04/2014 Zostavax Vaccine 26768 Given 11/07/2013 Pneumococcal Vaccine/Pneu movax 23 [id number] 69601 Given 11/07/2013 Influenza Vac, Split 3 Yr s And Up 53645 Given 10/11/2012 Influenza Vac, Split 3 Yr s And Up [id number] 10012 Given 09/22/2011 Influenza Vac, Split 3 Yr s And Up [id number] 38143 Given 10/21/2010 Influenza Vac, Split 3 Yr s And Up [id number] 92350 Given 08/30/2008 Td (Tetanus & D iphtheria) Decavac or Tenivac Age 7 & > [id number] Vital Signs Date Vital Result Comment 08/25/2023 10:32am BP Systolic 146 mmHg BP Diastolic 82 mmHg BP Systolic Recheck 136 mmHg BP Diastolic Recheck 68 mmHg Heart Rate 63 /min Respiratory Rate 16 /min Weight 159.00 lb Weight 72.122 kg Height 65.5 inches 5'5.50" BMI (Body Mass Index) 26.1 kg/m2 [place] Body Weight 125 lb 07/08/2023 10:53am BP Systolic 146 mmHg BP Diastolic 94 mmHg Body Temperature 97.2 F Heart Rate 71 /min Respiratory Rate 14 /min Weight 159.00 lb Weight 72.122 kg Height 65.5 inches 5'5.50" BMI (Body Mass Index) 26.1 kg/m2 O2 % BldC Oximetry 96 % [place] Body Weight 125 lb Procedures Date Code Description Status 02/23/2024 40967 Venipuncture Routine Complet ed 10/04/2023 [id number] Bone Mineral Density Test Co mpleted 10/04/2023 [id number] Mammogram Completed 08/25/2023 G0008 Influenza Admin Completed [...] MD 08/25/2023 I10 Essential (primary) hyperten valdo Satnosh Beverly MD 08/25/2023 E78.2 Mixed hyperlipidemia Santosh [...] 10:30 am - Santosh Beverly MD at [place] 08/25/2023 - Santosh Beverly MD* J44.9 Chronic [...]
--- OUTSIDE RECORDS SUMMARY | 2024-03-18 23:32 | External Medical Summary ---
TSH Created on: RENATA FREEMAN External Reference #: [id number] : 1945 Sex: Female Author Name Unknown Address Unknown Organization K1C:[facility] [address] [place] [address] Laboratory Report Ordering Provider Test Date Status MUKESH ADAM 02/23/2024 10:19 Final Observation Date Value Abnormality Reference (Units ) Status TSH 02/23/2024 15:50 0.02 Below low normal 0.50-6 .00 (uIU/mL) Final Performing Location [facility] [address] [place] [address]
--- OUTSIDE RECORDS SUMMARY | 2024-03-18 23:32 | External Medical Summary | Continuity of Care Document ---
Author Name Unknown Organization Family Practice [facility] Address [address] [place] [address] Phone [phone] Care Team Providers Care Cement Or Concrete Finishing Supervisor Name Role Phone [facility][Note 3] rts Medicine Care Team Information Die Maker Trim [phone] Barry Jeong MD Care Team Information Receiv er [phone] [facility] Care Team Information Die Maker Trim [phone] Santosh Beverly MD Care Team Information Die Maker Trim [phone] [facility] - Dermatology Care Team Information Die Maker Trim [phone] Ines Barton Care Team Information Die Maker Trim [phone] Dermatology - Dermatology Care Team Information Die Maker Trim Unavailable Problems Active Problems Provider Date Postoperative [...] Drug Use Denies Drug Use Exercise Type/Frequency GolPE INTER[employer]ATIONAL Allergies and adverse reactions Active Allergies Criticality Reaction | Severity Comments Date NKDA Unable to assess criticality 12/23/2007 Latex Unable to assess criticality 05/24/2023 Medications Active Medications SIG Qnty Indications Order ing Provider Date Diphenhydramine LOB02qe Capsules take one tab daily prn 5caps Santosh Beverly MD 02/04/2024 Metoprolol Succinate ER50mg Tablets ER 24HR Take 1 Tablet By Mouth Every Day 90tabs I10 Santosh Beverly MD 09/11/2021 Trelegy Xusvdlz119-77.5-25mcg/A ct Aerosol Use 1 puff By Mouth Every Day 60units J44.9 Santosh Beverly MD 12/14/2017 Qqyrredverrsugydzuk69me Tablets Take 1 Tablet By Mouth Every Day 90tabs I10 Santosh Beverly MD 12/14/[address] 1 by mouth every day 90caps K21.9 Santosh Beverly MD 09/13/2014 Levothyroxine Wmnzlk610kjm Tablets Take 1 Tablet By Mouth Every Day 90tabs E89.0 Santosh Beverly MD 08/30/2008 Fqmvhvcmc72ng Capsules take one tablet by mouth every night at bedtime as needed Unknown Flonase Allergy Fghjoy24hka/Act Suspension 2 sprays each nostril daily Unknown Medications Administered in Office Medication SIG Qnty Indications Ordering Provider Date Injection Kenalog 10 MG NDC [id number] Graciela Nina 07/04/2016 Injection Kenalog 10 MG NDC 73683029624Ktftlfdpu Santosh Beverly MD 01/2015 Injection Kenalog 10 MG NDC 09731157587Ccwmjurko Santosh Beverly MD Injection Kenalog 10 MG NDC [id number] Santosh Beverly MD Immunizations CPT Code Status Date Vaccine Lot # [id number] Given 08/25/2023 Influenza Vaccine High Do se 0.5ML Age 65 & > [id number] 82250 Given 08/25/2023 Sarscov2 Vaccin e 50 mcg/0.5 ML For Im Use 12 Yrs And Older [id number] 44094 Given 08/24/2022 Moderna Sars-Co v-2 (Covid-19) Vaccine, BiValent Booster 12y+ [id number] 37320 Given 08/24/2022 Influenza Vaccine High Do se 0.5ML Age 65 & > [id number] 16260 Given 11/27/2021 Pfizer Sars-Cov -2 (Cov-19) vacc 30mcg/0.3ML 12Y+ EMR Doc Only 59721 Given 08/21/2021 Influenza Vaccine High Do se 0.5ML Age 65 & > [id number] 46204 Given 02/27/2021 Pfizer Sars-Cov -2 (Cov-19) vacc 30mcg/0.3ML 12Y+ EMR Doc Only 38851 Given 02/06/2021 Pfizer Sars-Cov -2 (Cov-19) vacc 30mcg/0.3ML 12Y+ EMR Doc Only 24168 Given 08/13/2020 Influenza Vaccine High Do se 0.5ML Age 65 & > [id number] 62740 Given 10/19/2019 Influenza Vacci ne, Inactivated, Subunit, Adjuvanted, For [facility] [id number] 68518 Given 07/25/2018 Influenza Vac, Split, Preservative Free High Dose Age 65 & > [id number] 34313 Given 10/14/2017 Influenza Vac, Split, Preservative Free High Dose Age 65 & > [id number] 06057 Given 09/22/2016 Influenza Vac, Split, Preservative Free High Dose Age 65 & > [id number] 36136 Given 03/18/2016 Pneumococcal Conjugate-Pr evnar 13 [id number] 70828 Given 08/28/2015 Influenza Virus Vaccine, Quadrivalent, Im Use [id number] 23012 Given 09/13/2014 Influenza Virus Vaccine, Quadrivalent, Im Use [id number] 80283 Given 06/04/2014 Zostavax Vaccine 59243 Given 11/07/2013 Pneumococcal Vaccine/Pneu movax 23 [id number] 03857 Given 11/07/2013 Influenza Vac, Split 3 Yr s And Up 89067 Given 10/11/2012 Influenza Vac, Split 3 Yr s And Up [id number] 56514 Given 09/22/2011 Influenza Vac, Split 3 Yr s And Up [id number] 92726 Given 10/21/2010 Influenza Vac, Split 3 Yr s And Up [id number] 90768 Given 08/30/2008 Td (Tetanus & D iphtheria) Decavac or Tenivac Age 7 & > [id number] Vital Signs Date Vital Result Comment 08/25/2023 10:32am BP Systolic 146 mmHg BP Diastolic 82 mmHg BP Systolic Recheck 136 mmHg BP Diastolic Recheck 68 mmHg Heart Rate 63 /min Respiratory Rate 16 /min Weight 159.00 lb Weight 72.122 kg Height 65.5 inches 5'5.50" BMI (Body Mass Index) 26.1 kg/m2 [place] Body Weight 125 lb 07/08/2023 10:53am BP Systolic 146 mmHg BP Diastolic 94 mmHg Body Temperature 97.2 F Heart Rate 71 /min Respiratory Rate 14 /min Weight 159.00 lb Weight 72.122 kg Height 65.5 inches 5'5.50" BMI (Body Mass Index) 26.1 kg/m2 O2 % BldC Oximetry 96 % [place] Body Weight 125 lb Procedures Date Code Description Status 02/23/2024 54144 Venipuncture Routine Complet ed 10/04/2023 [id number] Bone Mineral Density Test Co mpleted 10/04/2023 [id number] Mammogram Completed 08/25/2023 G0008 Influenza Admin Completed [...] 10:30 am - Santosh Beverly MD at [place] 08/25/2023 - Santosh Beverly MD* J44.9 Chronic [...]
--- OUTSIDE RECORDS SUMMARY | 2024-03-18 23:32 | External Medical Summary ---
Author Name Unknown Address Unknown Organization [facility]:[address] [place] [address] Laboratory Report Ordering Provider Test Date Status MUKESH ADAM 02/23/2024 10:19 Final Observation Date Value Abnormality Reference (Units ) Status Glucose 02/23/2024 15:50 95 70-110 (MG/DL ) Final BUN 02/23/2024 15:50 12 6-25 (MG/DL) Final Creatinine 02/23/2024 15:50 0.8 0.5-1.2 (MG/ DL) Final Sodium 02/23/2024 15:50 130 Below low normal 135-14 5 (MEQ/L) Final Potassium 02/23/2024 15:50 3.7 3.5-5.0 (MEQ/ L) Final Cl 02/23/2024 15:50 87 Below lower panic limit s 95-107 (MEQ/L) Final CRITICAL RESULTS VERIFIED, F AXED, AND CALLED TO [facility] AT 3:52 ON 02/23/24 WK CO2 02/23/2024 15:50 30 24-31 (MEQ/L) Final Alk Phos 02/23/2024 15:50 82 43-122 (IU/L) Final ALT (Alanine aminotransferase) 02/23/2024 15:50 15 10-40 (IU/L) Final AST (Aspartate aminotransferase) 02/23/2024 15:50 19 3-42 (IU/L) Final Bilirubin, Total 02/23/2024 15:50 1.0 0.1-1. 3 (MG/DL) Final Calcium 02/23/2024 15:50 9.5 8.5-10.6 (MG/ DL) Final Protein 02/23/2024 15:50 7.0 5.8-8.0 (G/DL ) Final Albumin 02/23/2024 15:50 4.6 3.0-5.2 (G/DL ) Final GLOBULIN 02/23/2024 15:50 2.4 2.0-3.4 (G/DL ) Final GFR (estimated) 02/23/2024 15:50 74 >60 (ML /MIN/1.73 SQM) Final Performing Location [facility] [address] [place] [address]
--- OUTSIDE RECORDS SUMMARY | 2024-03-18 23:32 | External Medical Summary ---
Author Name Unknown Address Unknown Organization [facility]:[address] [place] [address] Laboratory Report Ordering Provider Test Date Status MUKESH ADAM 02/23/2024 10:19 Final Observation Date Value Abnormality Reference (Units ) Status Cholesterol 02/23/2024 15:50 180 0-200 (MG/D L) Final CHOLESTEROL
Less than 2 00mg/dl Low risk
201-239 mg/dl Borderline risk
Equal to or greater 240mg/dl High risk Triglyceride 02/23/2024 15:50 97 0-150 (MG/ DL) Final TRIGLYCERIDES
Less than 150mg/dl Normal
150-199mg/dl Borderline
200-499mg/dl High
Greater than 500mg/dl Very High HDL 02/23/2024 15:50 56 SEE COMMENT ( MG/DL) Final HDL
<40mg/dl Elevated R isk
41-59mg/dl Risk
>=60mg/dl Least Risk Cholesterol in LDL [Mass/vol ume] in Serum or Plasma 02/23/2024 15:50 119 0-130 (MG/DL) Final LDL
<100mg/dl Optimal<b r/> 100-129mg/dl Near Optimal
130-159mg/dl Borderline High
160-189mg/dl High
>=190 Very High Cholesterol in VLDL [Mass/vo lume] in Serum or Plasma 02/23/2024 15:50 19.4 SEE COMMENT (MG/DL ) Final VLDL
Less than 30mg/dl Normal HDL 02/23/2024 15:50 3.2 SEE COMMENT ( RATIO) Final CHOL/HDL
<4.0 Optimal<b r/> 4.0-5.0 Borderline
>6.0 High Risk NON-HDL 02/23/2024 15:50 124 SEE COMMENT ( MG/DL) Final NON-HDL
30mg/dl higher than LDL Target Performing Location [facility] [address] [place] [address]
--- OUTSIDE RECORDS SUMMARY | 2024-03-18 23:32 | External Medical Summary ---
T4, Free Created on: LYDIA RENATA External Reference #: [id number] : 1945 Sex: Female Author Name Unknown Address Unknown Organization K1C:[facility] [address] [place] [address] Laboratory Report Ordering Provider Test Date Status MUKESH ADAM 02/23/2024 10:19 Final Observation Date Value Abnormality Reference (Units ) Status T4, Free 02/23/2024 16:33 2.23 Above high normal 0.75- 1.54 (ng/dL) Final Performing Location [facility] [address] [place] [address]
[2024-03-19 06:04] LABS: Base Excess VBG 8.6 mEq/L; HCO3 VBG 34 mmol/L; Oxygen Saturation VBG 82.7 %; PCO2 VBG 49 mmHg (38-50); PO2 VBG 50 mmHg; pH VBG 7.45 (7.36-7.41)
[2024-03-19 06:15] LABS: Hematocrit (blood only) 35.9 % (37.0-47.0); Hemoglobin 12.5 g/dl (12.0-16.0); Mean Corpuscular Hemoglobin 31.5 pg (25.0-34.0); Mean Corpuscular Hgb Conc 34.8 g/dL (32.0-36.0); Mean Corpuscular Volume 90.4 fL (80.0-100.0); Mean Platelet Volume 9.9 fL (9.4-12.4); Platelet Count 282 K/uL (130-400); RDW Coefficient of Variation 13.4 % (11.5-14.5); RDW Standard Deviation 43.9 fL (36.4-46.3); Red Blood Count 3.97 M/uL (4.20-5.40); White Blood Count 13.45 K/ul (4.8-10.8)
[2024-03-19 06:46] LABS: BUN Creatinine Ratio 31.1 (10-20); Calcium 8.5 mg/dl (8.6-10.3); Creatinine Clr Calc Pharmacy 78.1 ml/min; Est GFR (African American) 101.3 ml/min; Est GFR (Non-African American) 87.4 ml/min; Magnesium 1.8 mg/dl (1.7-2.4); Potassium 3.7 mmol/L (3.5-5.1)
[2024-03-19] MEDS: LOSARTAN POTASSIUM 25 MG TAB PO SCH (08:52)
[2024-03-19] MEDS: POTASSIUM CHLORIDE CRTAB 20 MEQ TABCR PO ONE (11:21)
--- NOTE | 2024-03-19 14:16 | Cardiology Progress Note ---
Date of Service March 19, 2024 Assessment & Plan (1) Atrial fibrillation with rapid ventricular response: Plan: pt converted to SR and remains in SR (2) COPD (chronic obstructive pulmonary disease): (3) Hypertension: Plan: on the higher end today (4) Hypothyroidism: Plan - patient presented with upper respiratory symptoms likely related to COPD exacerbation -she is maintaining SR -would continue higher dose of her home metoprolol -start xarelto information to apply for lower cost provided for today -She is stable from a cardiac perspective -BP is slightly up but this is probably from the steroids and nebulizers for now just monitor -consider zio patch as an outpt -cardiology f/u upon discharge Admission and Anticipated Discharge Date Admission Date: March 17, 2024 Subjective Patient is seen and examined at bedside Pt seen in cardiology f/u due to new diagnosed pAF she has remained in SR She is still having cough and URI symptoms no chest pain or lightheadedness or dizziness Review of Systems Review of Systems: All systems reviewed & are unremarkable except as noted in Subjective Physical Exam Physical Exam: aaox3, NAD NC/AT, EOMI Supple No JVD Nrl S1/S2, No murmur b/l end expiration wheezing soft nt/nd no LE edema b/l skin intact no focal deficits Results & Data Vital Signs (Past 12 Hours) Vital Signs Temp Pulse Resp BP Pulse Ox O2 Del Method 03/19/24 12:32 71 18 93 Room Air 03/19/24 11:24 36.6 C 62 18 162/76 H 93 Room Air 03/19/24 07:31 36.5 C 64 18 186/80 H 91 Room Air 03/19/24 06:55 77 17 95 Room Air 03/19/24 03:58 36.6 C 60 17 188/82 H 93 Room Air Laboratory Results Laboratory Results - last 24 hr 03/19/24 05:44 WBC 13.45 H RBC 3.97 L Hgb 12.5 Hct 35.9 L MCV 90.4 MCH 31.5 MCHC 34.8 RDW Std Deviation 43.9 RDW Coeff of Yuli 13.4 Plt Count 282 MPV 9.9 VBG pH 7.45 H VBG pCO2 49 VBG pO2 50 VBG HCO3 34 VBG O2 Saturation 82.7 VBG Base Excess 8.6 Sodium 133 L Potassium 3.7 Chloride 96 L Carbon Dioxide 29 Anion Gap 8 BUN 19 Creatinine 0.61 Est Cr Clr Drug Dosing 78.1 Est GFR ( Amer) 101.3 Est GFR (Non-Af Amer) 87.4 BUN/Creatinine Ratio 31.1 H Glucose 98 Calcium 8.5 L Magnesium 1.8 Diagnostic Findings echocardiogram 03/18/2024 EF normal mild MR Medications Administered Current Medications Acetaminophen (Acetaminophen 325 Mg Tab) 650 mg PO Q4H PRN PRN Reason: Pain or Fever Stop: 04/17/24 01:14 Diclofenac Sodium (Diclofenac Sod 1% Gel 100 Gm Tube) 2 gm EXT Q6H PRN; Protoco l PRN Reason: joint pain Stop: 04/17/24 05:08 Fluticasone Furoate (Fluticasone Furoate 100mcg 14 Puffs/Inhaler) 1 puffs INH DAILY FILIPE Stop: 04/17/24 08:59 Last Admin: 03/19/24 07:39 Dose: 1 puffs Hydralazine HCl (Hydralazine 10 Mg Tab) 10 mg PO Q6H PRN PRN Reason: Hypertension SBP>180orDBP>100 Stop: 04/18/24 07:59 Hydroxyzine HCl (Hydroxyzine Hcl 10 Mg Tab) 10 mg PO QID PRN PRN Reason: Anxiety Stop: 04/16/24 23:05 Promethazine HCl 6.25 mg/ (Sodium Chloride) 50.25 mls @ 201 mls/hr IV Q6H PRN PRN Reason: Nausea And Vomiting Stop: 04/16/24 23:08 Ipratropium Hawthorne (Ipratropium [place] Neb Soln 0.02% 0.5mg/2.5ml Vial) 0.5 mg INH Q6R FILIPE Stop: 04/17/24 00:59 Last Admin: 03/19/24 12:32 Dose: 0.5 mg Levalbuterol HCl (Levalbuterol 1.25 Mg/3 Ml Neb) 1.25 mg NEB Q6R FILIPE Stop: 04/17/24 00:59 Last Admin: 03/19/24 12:32 Dose: 1.25 mg Levothyroxine Sodium (Levothyroxine Sodium 150 Mcg Tablet) 150 mcg PO DAILYBB FILIPE Stop: 04/17/24 06:29 Last Admin: 03/19/24 06:39 Dose: 150 mcg Losartan Potassium (Losartan Potassium 25 Mg Tab) 25 mg PO QAM FILIPE Stop: 04/18/24 08:59 Last Admin: 03/19/24 08:52 Dose: 25 mg Melatonin (Melatonin 3 Mg Tab) 9 mg PO HS FILIPE Stop: 04/17/24 20:59 Last Admin: 03/18/24 20:32 Dose: 9 mg Metoprolol Succinate (Metoprolol Succ 50mg Ext Rel Tab) 50 mg PO BID FILIPE Stop: 04/17/24 08:59 Last Admin: 03/19/24 07:39 Dose: 50 mg Oxycodone HCl (Oxycodone Hcl Ir 5 Mg Tab (Immediate Release)) 5 mg PO Q4H PRN PRN Reason: Pain Stop: 03/31/24 23:08 Pantoprazole Sodium (Pantoprazole 40 Mg Tab) 40 mg PO DAILY FILIPE Stop: 04/17/24 08:59 Last Admin: 03/19/24 07:40 Dose: 40 mg Prednisone (Prednisone 20 Mg Tab) 20 mg PO DAILY FILIPE Stop: 03/22/24 08:59 Last Admin: 03/19/24 07:39 Dose: 20 mg Rivaroxaban (Rivaroxaban 20 Mg Tab) 20 mg PO Q24H FILIPE Stop: 04/17/24 14:29 Last Admin: 03/18/24 14:34 Dose: 20 mg Umeclidinium/Vilanterol (Umeclidinium/Vilanterol 62.5/25mcg 7 Puffs/Inhaler) 1 puffs INH DAILY FILIPE Stop: 04/17/24 08:59 Last Admin: 03/19/24 07:38 Dose: 1 puffs (2) COPD (chronic obstructive pulmonary disease) COPD type: unspecified COPD Qualified Code(s): J44.9 - Chronic obstructive pulmonary disease, unspecified
--- NOTE | 2024-03-19 14:20 | Hospitalist Progress Note ---
Date of Service March 19, 2024 Assessment & Plan (1) Atrial fibrillation with rapid ventricular response: Plan: Atrial fibrillation with RVR --ECHO: Sinus rhythm during the study. EF 55 to 60%. Grade 1 diastolic dysfunction. Known dilated cardiac chambers. Mild MR. --CT Chest:No acute findings. Emphysematous changes noted. Spontaneously converted to sinus IV Cardizem discontinued Metoprolol succinate dose increased to 50 mg twice a day IV heparin transition to Xarelto Appreciate cardiology input Needs follow-up with cardiology on discharge Acute COPD exacerbation Likely precipitated by her rhinovirus infection Rhinovirus infection Possible sepsis Recently completed outpatient doxycycline, prednisone course prescribed by PCP. 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 Clinically improving Saturating well on room air Prediabetes HbA1c 6.3 Counseled lifestyle changes Hypomagnesemia Replete electrolytes as needed Monitor Abnormal thyroid function test Low TSH, elevated free T4 H/O thyroid cancer S/P surgery Continue levothyroxine--dose decreased to 150 mcg daily Will need repeat thyroid function test as outpatient Hypertension BP elevated likely situational Avoid NSAID use (on ibuprofen at home) Steroids could be contributing as well Continue metoprolol HCTZ on hold Added losartan 25 mg daily Chronic hyponatremia Will consider to discontinue HCTZ on discharge Sodium 133 today Monitor sodium levels GERD continue PPI DVT Px: Xarelto Code Status Full code Admission and Anticipated Discharge Date Admission Date: March 17, 2024 Subjective Patient is seen and examined at bedside States feeling a lot better today Still has some cough with expectoration Dyspnea much improved Denies any chest pain, nausea, vomiting, abdominal pain Saturating well on room air Review of Systems Review of Systems: All systems reviewed & are unremarkable except as noted in Subjective Physical Exam Physical Exam: Physical Exam: Vitals signs as noted above General Appearance:Moderately built and nourished, no apparent distress Head: normocephalic, Atraumatic Eyes: normal inspection, EOMI Neck: supple, Trachea midline Respiratory/Chest: Decreased breath sounds, B/L scattered wheezes, No accessory muscle use Cardiovascular: S1, S2, No murmur Abdomen/GI:Soft, Non tender, Bowel sounds present Extremities/Musculoskeletal:normal inspection, no edema Neurologic/Psych:AAOX3, grossly no focal neurological deficits Skin: normal color, warm Results & Data Results & Data Vital Signs (Past 12 Hours) Vital Signs Temp Pulse Resp BP Pulse Ox O2 Del Method 03/19/24 12:32 71 18 93 Room Air 03/19/24 11:24 36.6 C 62 18 162/76 H 93 Room Air 03/19/24 07:31 36.5 C 64 18 186/80 H 91 Room Air 03/19/24 06:55 77 17 95 Room Air 03/19/24 03:58 36.6 C 60 17 188/82 H 93 Room Air Laboratory Results Short CBC 03/19/24 Range/Units 05:44 WBC 13.45 H (4.8-10.8) K/ul Hgb 12.5 (12.0-16.0) g/dl Hct 35.9 L (37.0-47.0) % Plt Count 282 (130-400) K/uL BMP 03/19/24 05:44 Sodium 133 L Potassium 3.7 Chloride 96 L Carbon Dioxide 29 BUN 19 Creatinine 0.61 Glucose 98 Calcium 8.5 L
[2024-03-20] MEDS: hydrALAZINE 10 MG TAB PO PRN (04:14)
[2024-03-20 07:42] LABS: Hematocrit (blood only) 40.2 % (37.0-47.0); Mean Corpuscular Hemoglobin 31.5 pg (25.0-34.0); Mean Corpuscular Hgb Conc 34.8 g/dL (32.0-36.0); Mean Corpuscular Volume 90.3 fL (80.0-100.0); Mean Platelet Volume 9.9 fL (9.4-12.4); Platelet Count 284 K/uL (130-400); RDW Coefficient of Variation 13.4 % (11.5-14.5); RDW Standard Deviation 44.2 fL (36.4-46.3); Red Blood Count 4.45 M/uL (4.20-5.40); White Blood Count 11.56 K/ul (4.8-10.8)
[2024-03-20 07:53] LABS: BUN Creatinine Ratio 22.1 (10-20); Calcium 8.8 mg/dl (8.6-10.3); Creatinine Clr Calc Pharmacy 61.9 ml/min; Est GFR (African American) 86.3 ml/min; Est GFR (Non-African American) 74.5 ml/min; Magnesium 1.7 mg/dl (1.7-2.4); Potassium 4.1 mmol/L (3.5-5.1)
[2024-03-20] MEDS: LOSARTAN POTASSIUM 25 MG TAB PO ONE (10:05)
--- NOTE | 2024-03-20 12:23 | Hospitalist Progress Note ---
Date of Service March 20, 2024 Assessment & Plan (1) Atrial fibrillation with rapid ventricular response: Plan: Atrial fibrillation with RVR --ECHO: Sinus rhythm during the study. EF 55 to 60%. Grade 1 diastolic dysfunction. Known dilated cardiac chambers. Mild MR. --CT Chest:No acute findings. Emphysematous changes noted. Spontaneously converted to sinus IV Cardizem discontinued Metoprolol succinate dose increased to 50 mg twice a day IV heparin transition to Xarelto Appreciate cardiology input Needs follow-up with cardiology on discharge Heart rate well-controlled Continue current management Acute COPD exacerbation Likely precipitated by her rhinovirus infection Rhinovirus infection Possible sepsis Recently completed outpatient doxycycline, prednisone course prescribed by PCP. 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 Saturating well on room air Prediabetes HbA1c 6.3 Counseled lifestyle changes Hypomagnesemia Replete electrolytes as needed Monitor Abnormal thyroid function test Low TSH, elevated free T4 H/O thyroid cancer S/P surgery Continue levothyroxine--dose decreased to 150 mcg daily Will need repeat thyroid function test as outpatient Hypertension BP elevated likely situational Avoid NSAID use (on ibuprofen at home) Steroids could be contributing as well Continue metoprolol HCTZ --plan to discontinue given hyponatremia Added losartan 50 mg daily Chronic hyponatremia Will consider to discontinue HCTZ on discharge Sodium 133 today Monitor sodium levels GERD continue PPI DVT Px: Xarelto Code Status Full code Disposition Home Admission and Anticipated Discharge Date Admission Date: March 17, 2024 Subjective Patient is seen and examined at bedside Doing well today No new complaints Cough improved Denies any chest pain, nausea, vomiting, abdominal pain, dyspnea Saturating well on room air Review of Systems Review of Systems: All systems reviewed & are unremarkable except as noted in Subjective Physical Exam Physical Exam: Physical Exam: Vitals signs as noted above General Appearance:Moderately built and nourished, no apparent distress Head: normocephalic, Atraumatic Eyes: normal inspection, EOMI Neck: supple, Trachea midline Respiratory/Chest: Decreased breath sounds, CTA, No accessory muscle use Cardiovascular: S1, S2, No murmur Abdomen/GI:Soft, Non tender, Bowel sounds present Extremities/Musculoskeletal:normal inspection, no edema Neurologic/Psych:AAOX3, grossly no focal neurological deficits Skin: normal color, warm Results & Data Results & Data Vital Signs (Past 12 Hours) Vital Signs Temp Pulse Pulse Resp BP Pulse Ox O2 Del Method 03/20/24 10:55 36.4 C L 61 18 169/76 H 93 Nasal Cannula 03/20/24 08:00 Room Air 03/20/24 08:00 65 03/20/24 07:37 36.7 C 60 18 185/78 H 93 Room Air 03/20/24 04:13 57 L 180/74 H 03/20/24 03:30 36.7 C 62 30 H 201/89 H 92 Room Air Laboratory Results Short CBC 03/20/24 Range/Units 07:10 WBC 11.56 H (4.8-10.8) K/ul Hgb 14.0 (12.0-16.0) g/dl Hct 40.2 (37.0-47.0) % Plt Count 284 (130-400) K/uL BMP 03/20/24 07:10 Sodium 133 L Potassium 4.1 Chloride 97 L Carbon Dioxide 28 BUN 17 Creatinine 0.77 Glucose 93 Calcium 8.8
--- NOTE | 2024-03-20 12:48 | Discharge Summary ---
Date of Service March 20, 2024 Admission HPI Per Admitting Provider History obtained from patient and records. Medical history significant for COPD, hypertension, hyperlipidemia, thyroid cancer status post surgery, postsurgical hypothyroidism, chronic hyponatremia, GERD, gout, past tobacco abuse. 3 weeks ago, patient noted junky cough symptoms with shortness of breath. No chest pain. Sick contacts at home. Denies aspiration. Initial improvement after outpatient doxycycline and prednisone course prescribed by PCP. Cough symptoms productive of clear sputum noted the last 2 days. Worsening shortness of breath. Blood pressure noted to be high at home. No headache symptoms. No fluid retention. Patient compliant with home BP medications. EMS called to patient's home. Patient noted to be in rapid A-fib. No previous episodes of atrial fibrillation or atrial flutter as per patient. Intermittent atrial fib/flutter noted at the ER. Hiatus heart rate 130s. IV Cardizem administered at the ER. Ceftriaxone, doxycycline, and neb treatment administered at the ER. 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 Admission Exam Per Admitting Provider GENERAL: Comfortable, pleasant, minimal respiratory distress SKIN: Normal color, warm HEENT: [place] palpebral conjunctivae, no ptosis, dry buccal mucosa NECK : Supple, no tenderness CHEST : Decreased breath sounds, occasional expiratory wheezes, no tenderness HEART : Tachycardic, no obvious murmurs ABDOMEN: Some distention, nontender EXTREMITIES : No LE swelling/tenderness, no other conspicuous deformities noted NEUROLOGIC : Coherent, no facial asymmetry, no other gross focality Principal Diagnosis Atrial fibrillation with RVR Acute COPD exacerbation Prediabetes Abnormal thyroid function test Rhinovirus infection Discharge Data Allergies Allergy/AdvReac Type Severity Reaction Status Date / Time No Known Allergies Allergy Verified 03/17/24 22:17 Consultations 03/17/24 21:46 ED Decision to Admit Stat 03/18/24 01:15 Consult Cardiology Routine Procedures Performed Laboratory Results WBC 11.56 K/ul (4.8-10.8) H 03/20/24 07:10 RBC 4.45 M/uL (4.20-5.40) 03/20/24 07:10 Hgb 14.0 g/dl (12.0-16.0) 03/20/24 07:10 Hct 40.2 % (37.0-47.0) 03/20/24 07:10 MCV 90.3 fL (80.0-100.0) 03/20/24 07:10 MCH 31.5 pg (25.0-34.0) 03/20/24 07:10 MCHC 34.8 g/dL (32.0-36.0) 03/20/24 07:10 RDW Std Deviation 44.2 fL (36.4-46.3) 03/20/24 07:10 RDW Coeff of Yuli 13.4 % (11.5-14.5) 03/20/24 07:10 Plt Count 284 K/uL (130-400) 03/20/24 07:10 MPV 9.9 fL (9.4-12.4) 03/20/24 07:10 Immature Gran % (Auto) 1.0 % 03/18/24 06:57 Neut % (Auto) 90.8 % 03/18/24 06:57 Lymph % (Auto) 6.0 % 03/18/24 06:57 [place] % (Auto) 1.8 % 03/18/24 06:57 Eos % (Auto) 0.2 % 03/18/24 06:57 Baso % (Auto) 0.2 % 03/18/24 06:57 Neut # (Auto) 10.93 K/uL (1.40-6.50) H 03/18/24 06:57 Lymph # (Auto) 0.72 K/uL (1.20-3.40) L 03/18/24 06:57 [place] # (Auto) 0.22 K/uL (0.11-0.59) 03/18/24 06:57 Eos # (Auto) 0.02 K/uL (0.00-0.50) 03/18/24 06:57 Baso # (Auto) 0.02 K/uL (0.00-0.20) 03/18/24 06:57 Immature Gran # (Auto) 0.12 K/uL (0.01-0.20) 03/18/24 06:57 PT 10.6 Seconds (9.0-12.0) 03/17/24 19:28 INR 1.0 (0.9-1.1) 03/17/24 19:28 APTT 27 Seconds (21-31) 03/17/24 19:28 PTT Ratio 1.0 03/17/24 19:28 Heparin Anti-Xa, Unfract 0.48 IU/ml (0.3-0.7) 03/18/24 06:57 VBG pH 7.45 (7.36-7.41) H 03/19/24 05:44 VBG pCO2 49 mmHg (38-50) 03/19/24 05:44 VBG pO2 50 mmHg 03/19/24 05:44 VBG HCO3 34 mmol/L 03/19/24 05:44 VBG O2 Saturation 82.7 % 03/19/24 05:44 VBG Base Excess 8.6 mEq/L 03/19/24 05:44 Sodium 133 mmol/L (136-145) L 03/20/24 07:10 Potassium 4.1 mmol/L (3.5-5.1) 03/20/24 07:10 Chloride 97 mmol/L (98-107) L 03/20/24 07:10 Carbon Dioxide 28 mmol/L (21-32) 03/20/24 07:10 Anion Gap 8 (3-11) 03/20/24 07:10 BUN 17 mg/dl (6-23) 03/20/24 07:10 Creatinine 0.77 mg/dl (0.6-1.2) 03/20/24 07:10 Est Cr Clr Drug Dosing 61.9 ml/min 03/20/24 07:10 Est GFR ( Amer) 86.3 ml/min 03/20/24 07:10 Est GFR (Non-Af Amer) 74.5 ml/min 03/20/24 07:10 BUN/Creatinine Ratio 22.1 (10-20) H 03/20/24 07:10 Glucose 93 mg/dl (70-99(Fasting)) 03/20/24 07:10 Estimat Average Glucose 134 mg/dl 03/17/24 23:05 Hemoglobin A1c 6.3 % (4.5-5.6) H 03/17/24 23:05 Osmolality 267 mOsm/kg (280-300) L 03/17/24 19:28 Lactate 1.5 mmol/L (0.4-2.0) 03/18/24 12:02 Calcium 8.8 mg/dl (8.6-10.3) 03/20/24 07:10 Magnesium 1.7 mg/dl (1.7-2.4) 03/20/24 07:10 Total Bilirubin 0.7 mg/dl (0.2-1.0) 03/17/24 19:28 Direct Bilirubin 0.1 mg/dl (0-0.2) 03/17/24 19:28 AST 14 U/L (13-39) 03/17/24 19:28 ALT 14 U/L (7-52) 03/17/24 19:28 Alkaline Phosphatase 73 U/L (34-104) 03/17/24 19:28 Troponin I High Sens 7.2 pg/ml (0-14) 03/17/24 19: B-Natriuretic Peptide 133 pg/ml (0-100) H 03/17/24 19:28 Total Protein 7.1 gm/dl (6.0-8.3) 03/17/24 19:28 Albumin 4.2 gm/dl (3.4-5.0) 03/17/24 19:28 Procalcitonin < 0.02 ng/ml (0-0.5) 03/17/24 19:28 TSH 0.027 uIu/ml (0.300-4.500) L 03/17/24 19:28 Free T4 1.84 ng/dl (0.61-1.60) H 03/17/24 19:28 Urine Color Yellow 03/17/24 19:53 Urine Appearance Clear (Clear) 03/17/24 19:53 Urine pH 6.5 (4.5-7.5) 03/17/24 19:53 Ur Specific [place] 1.009 (1.000-1.030) 03/17/24 19:53 Urine Protein Negative (Negative) 03/17/24 19:53 Urine Glucose (UA) Negative (Negative) 03/17/24 19:53 Urine Ketones Negative (Negative) 03/17/24 19:53 Urine Blood 1+ (Negative) H 03/17/24 19:53 Urine Nitrite Negative (Negative) 03/17/24 19:53 Urine Bilirubin Negative (Negative) 03/17/24 19:53 Urine Urobilinogen Negative (Negative) 03/17/24 19:53 Ur Leukocyte Esterase Trace (Negative) H 03/17/24 19:53 Urine WBC (Auto) 0-5 /hpf (0-5) 03/17/24 19:53 Urine RBC (Auto) 6-10 /hpf (0-2) H 03/17/24 19:53 U Hyaline Cast (Auto) 0-2 /lpf (0-2) 03/17/24 19:53 U Epithel Cells (Auto) 0-2 /hpf (0-2) 03/17/24 19:53 Urine Bacteria (Auto) None Seen (None Seen) 03/17/24 19:53 Urine Osmolality 272 mOsm/kg (500-800) L 03/18/24 Unknown Ur Random Sodium 62 mmol/L 03/18/24 Unknown Adenovirus (PCR) Not Detected (NotDetected) 03/17/24 20:40 B. pertussis DNA (PCR) Not Detected (NotDetected) 03/17/24 20:40 B.parapertussis DNA PCR Not Detected (NotDetected) 03/17/24 20:40 C. pneumoniae DNA (PCR) Not Detected (NotDetected) 03/17/24 20:40 Coronavirus OC43 (PCR) Not Detected (NotDetected) 03/17/24 20:40 Coronavirus HKU1 (PCR) Not Detected (NotDetected) 03/17/24 20:40 Coronavirus 229E (PCR) Not Detected (NotDetected) 03/17/24 20:40 SARS-CoV-2 (PCR) Not Detected (NotDetected) 03/17/24 20:40 Coronavirus NL63 (PCR) Not Detected (NotDetected) 03/17/24 20:40 Human Metapneumovir PCR Not Detected (NotDetected) 03/17/24 20:40 Influenza Type A (PCR) Not Detected (NotDetected) 03/17/24 20:40 Influenza Type B (PCR) Not Detected (NotDetected) 03/17/24 20:40 M. pneumoniae (PCR) Not Detected (NotDetected) 03/17/24 20:40 Parainfluenza 1 (PCR) Not Detected (NotDetected) 03/17/24 20:40 Parainfluenza 2 (PCR) Not Detected (NotDetected) 03/17/24 20:40 Parainfluenza 3 (PCR) Not Detected (NotDetected) 03/17/24 20:40 Parainfluenza 4 (PCR) Not Detected (NotDetected) 03/17/24 20:40 RSV (PCR) Not Detected (NotDetected) 03/17/24 20:40 Entero/Rhino (PCR) DETECTED (NotDetected) A 03/17/24 20:40 Impressions Chest X-Ray 03/17/24 19:04 XR chest 1V portable HISTORY: 78 years-old Female Sepsis acute sepsis COMPARISON: CT chest of same day TECHNIQUE: AP view of the chest. FINDINGS: Cardiac silhouette is enlarged. Pulmonary emphysema. No pneumothorax, pleural effusion, airspace consolidation or pulmonary edema. Bones appear grossly intact. IMPRESSION: Emphysema without acute process of the chest. ACT 112: Negative or not required by law. The above report was generated using voice recognition software. It may contain grammatical, syntax or spelling errors. Electronically signed by: Jacky Clement M.D. 03/18/2024 7:[address] 03/17/24 23:01 Exam(s): CT CHEST With Contrast IV Amt: 88 cc's optiray 320 EXAM: CT Chest With Intravenous Contrast CLINICAL HISTORY: Reason for exam: recurrent cough. TECHNIQUE: Axial computed tomography images of the chest with intravenous contrast. CTDI is 13.44 mGy and DLP is 454.18 mGy-cm. Automated exposure control was utilized for the study. A dose lowering technique was utilized adhering to the principles of ALARA. CONTRAST: Patient received 88 cc's optiray 320 of IV contrast COMPARISON: No relevant prior studies available. FINDINGS: Lungs: Centrilobular emphysema. No consolidation or mass. Pleural space: Unremarkable. No pleural effusion or pneumothorax. Heart: Coronary artery atherosclerosis. No cardiomegaly or pericardial effusion. Bones/joints: Unremarkable. No acute fracture. No dislocation. Soft tissues: Unremarkable. Vasculature: Thoracic aortic atherosclerosis without aneurysm or dissection. Normal caliber main pulmonary artery. Lymph nodes: Unremarkable. No adenopathy. Kidneys and ureters: Partially imaged simple left kidney cyst measuring 3 cm; no further follow-up required. IMPRESSION: 1. No acute findings. 2. Emphysematous changes noted. Pulmonary emphysema is an independent risk factor for lung cancer. Recommend patient be evaluated for low-dose cancer screening protocol. Electronically signed by: Miguelangel Vu M.D. 03/18/24 01:24 AM Ordered Studies 03/17/24 23:01 CT chest diagnostic w con Stat Hospital Course (1) Atrial fibrillation with rapid ventricular response: Atrial fibrillation with RVR --ECHO: Sinus rhythm during the study. EF 55 to 60%. Grade 1 diastolic dysfunction. Known dilated cardiac chambers. Mild MR. --CT Chest:No acute findings. Emphysematous changes noted. Spontaneously converted to sinus IV Cardizem discontinued Metoprolol succinate dose increased to 50 mg twice a day IV heparin transition to Xarelto Appreciate cardiology input Needs follow-up with cardiology on discharge Heart rate well-controlled Continue current management Acute COPD exacerbation Likely precipitated by her rhinovirus infection Rhinovirus infection Possible sepsis Recently completed outpatient doxycycline, prednisone course prescribed by PCP. 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 Saturating well on room air Prediabetes HbA1c 6.3 Counseled lifestyle changes Hypomagnesemia Replete electrolytes as needed Monitor Abnormal thyroid function test Low TSH, elevated free T4 H/O thyroid cancer S/P surgery Continue levothyroxine--dose decreased to 150 mcg daily Will need repeat thyroid function test as outpatient Hypertension BP elevated likely situational Avoid NSAID use (on ibuprofen at home) Steroids could be contributing as well Continue metoprolol HCTZ --plan to discontinue given hyponatremia Added losartan 50 mg daily Chronic hyponatremia Will consider to discontinue HCTZ on discharge Sodium 133 today Monitor sodium levels GERD continue PPI DVT Px: Xarelto Code Status Full code Disposition Home Total Time Total Time Spent Total Time Spent (In Minutes): 59 minutes Discharge Plan Discharge Items Patient Disposition: Home - Self-Care Reason For Visit: AFIB Discharge Diagnosis: Atrial fibrillation with RVR Acute COPD exacerbation Prediabetes Abnormal thyroid function test Rhinovirus infection Activity: Per Instructions section Exercise/Sports: Wait until after follow-up appointment Non-emergency contact: Primary Care Provider and 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 Follow-up with your physician for results -- Complete the prednisone for 2 more days as prescribed -- Monitor your blood pressure regularly at home. Discuss with your physician for further adjustment of medications as needed -- Obtain blood test (thyroid function test) in 4 weeks and follow-up with your physician for further adjustment of your levothyroxine dose. Do not take group of medications belonging to NSAIDs group -can cause worsening of your kidney function, and can increase your risk for bleeding (while on Xarelto). List Of these medications includes but not limited to: Aspirin Diclofenac Ibuprofen, Motrin, Advil Toradol,ketorolac Naproxen, Aleve, Naprosyn You can take Tylenol as needed for pain or fever When buying [id number] pain medications please consult with pharmacy if you are not sure regarding ingredients, as a lot of the pain medications have combination of NSAIDs and Tylenol. Seek immediate medical attention if your symptoms reoccur or worsen Please take all medications as instructed on discharge list below. Please call if you have any questions or problems. You can reach a [facility] hospitalist on duty at [facility] 24 hours a day by calling [phone] Pending Studies at Discharge: Yes Studies:: Blood Cultures Stand-Alone Forms: [facility], Smoking Cessation Medications and DC Order Prescriptions: New Xarelto 20 mg Tablet 20 mg PO Q24H Qty: 30 1RF losartan 50 mg Tablet 50 mg PO QAM Qty: 30 1RF prednisone 10 mg Tablet 10 mg PO DAILY Qty: 2 0RF metoprolol succinate 50 mg Tablet Extended Release 24 Hr 50 mg PO BID Qty: 60 1RF levothyroxine [Synthroid] 150 mcg Tablet 150 mcg PO DAILYBB Qty: 30 1RF Continued melatonin 10 mg capsule 10 mg PO HS esomeprazole magnesium [Nexium] 20 mg capsule,delayed release(DR/EC) 20 mg PO DAILY Trelegy Ellipta 100-62.5-25 mcg blister with device 1 inh inhalation DAILY alendronate 70 mg tablet 70 mg PO .QWEEK Rx Instructions: Take wed diphenhydramine HCl [Benadryl] 25 mg Capsule 25 mg PO HS albuterol sulfate 90 mcg/actuation HFA aerosol inhaler 2 puff INHALATION DIRECTED PRN (Reason: Shortness Of Breath Or Wheezing) Rx Instructions: Did not meat pickler yet fluticasone propionate 50 mcg/actuation spray,suspension 1 spray INTRANASAL QPM Discontinued metoprolol succinate 50 mg capsule,sprinkle,ER 24hr 50 mg PO DAILY levothyroxine 175 mcg tablet 175 mcg PO DAILY hydrochlorothiazide 25 mg tablet 25 mg PO DAILY ibuprofen 200 mg capsule 400 mg PO AMHS Discharge Orders: Discharge Order (Routine); Ordered 03/20/24 Ordered By: Toney Aguero/Other Patient Handouts: Prediabetes, 5 Steps for Eating Healthier Admission Data Admit Date/Time: 03/17/24 23:04 Attending Provider: Toney Harris Admit Provider: Miguel Evans Primary Care Provider: Santosh Beverly Other Providers: Miguel Evans; Silvia Marsh; Naresh Pavon; Alan Lowe; Lui Sharpe; Rubio Cardona; Abhi Camarena; Dionne Meza; Susanne Hand; Leslee Jerome Ashley M.; Constantino Valdez; Judah Akers; Mallory Saenz; Sowmya Sparrow; Thuy Kessler; La Regalado; Sebastián Gonzalez; Divya Woodson Other Interventions: Discharge Summary Assessment (RN) Last Done: 03/20/24 12:34
[2024-03-21] MEDS ORDERED: LOSARTAN POTASSIUM 50 MG TAB PO SCH (09:00)
[2024-03-21] MEDS ORDERED: predniSONE 10 MG TABLET PO SCH (09:00)
== END 2024-03-20 14:05 | disposition home or self-care (01) | DRG 308 ==
LOC: ED 18:58 → 2S 23:04 → INTOOBSV 23:04 → 2S 03-18 00:43